=== PATIENT | female | born 1990 | race Caucasian/White ===

== ENCOUNTER 2017-01-03 15:22 | Emergency (ER) | payer OTHER ==
[2017-01-03 15:28] VITALS: TEMP 98.1
[2017-01-03] MEDS ORDERED: ORPHENADRINE 30 MG/ML 2 ML VIAL IM STA (15:53)
--- NOTE | 2017-01-03 15:53 | ED ---
Extremity Problem HPI - General Chief complaint: Extremity Problem,Nontraumatic Stated complaint: R thigh pain Time Seen by Provider: 01/03/17 15:37 Source: patient, RN notes reviewed Mode of arrival: ambulatory Limitations: no limitations - History of Present Illness Initial comments: 26-year-old female presents emergency Department chief complaint of right thigh pain. Patient states that this when she woke up and she decided is not in her right thigh. She states that she states her leg she moves her leg causes increased pain. Patient states she's never had pain like this before. Patient denies any injuries to the leg. Patient does admit to smoking she denies any hormones. Patient states she was concerned due to her continued pain and discomfort so she thought that she should be evaluated.Patient denies any recent fever, chills, shortness of breath, chest pain, back pain, abdominal pain , nausea vomiting, numbness or tingling, dysuria or hematuria, constipation or diarrhea, headaches or visual changes, or any other current symptoms. - Related Data Previous Rx's Medication Instructions Recorded Ibuprofen [Motrin] 800 mg PO Q6HR PRN #20 tab 08/04/16 Allergies Allergy/AdvReac Type Severity Reaction Status Date / Time No Known Allergies Allergy Verified 01/03/17 15:28 Review of Systems ROS Statement: Those systems with pertinent positive or pertinent negative responses have been documented in the HPI. ROS Other: All systems not noted in ROS Statement are negative. 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 History of Any Multi-Drug Resistant Organisms: MRSA Date of last positivie culture/infection: 2004 MDRO Source:: r knee Additional Past Surgical History / Comment(s): "hole in diaphram" (AT 4 YRS OLD) , ANESTHESIA FOR HEAD INJURY A CHILD Past Anesthesia/Blood Transfusion Reactions: No Reported Reaction Past Psychological History: Depression Smoking Status: Current some day smoker Past Alcohol Use History: Occasional Past Drug Use History: None Reported - Past Family History Mother Family Medical History: No Reported History General Exam - General Exam Comments Initial Comments: General: The patient is awake and alert, in no distress, and does not appear acutely ill. Neck: The neck is supple, there is no tenderness. Cardiovascular: There is a regular rate and rhythm. No murmur, rub or gallop is appreciated. Respiratory: Lungs are clear to auscultation, respirations are non-labored, breath sounds are equal. No wheezes, stridor, rales, or rhonchi. Musculoskeletal: Sensation intact with 2+ pulses throughout her right lower extremity. Full range motion of right hip and right knee and right ankle. Patient does appear to have some tenderness to palpation in the posterior right thigh. There is some tenderness to palpation. No cord or deformity noted. Neurological: CN II-XII intact, There are no obvious motor or sensory deficits. Coordination appears grossly intact. Speech is normal. Skin: Skin is warm and dry and no rashes or lesions are noted. Psychiatric: Normal mood and affect. Limitations: no limitations Course Vital Signs 01/03/17 15:26 Temperature 98.1 F Pulse Rate 85 Respiratory 20 Rate Blood Pressure 117/70 O2 Sat by Pulse 99 Oximetry Medical Decision Making - Medical Decision Making 26-year-old female presents for right thigh pain. This time x-ray and ultrasound are reviewed and acute process. Discussed the patient is most likely having a muscle strain to the right side. We did discuss heating pads. She received Norflex injection here. We discussed return parameters and follow- up states she understood all questions. She will be discharged home. - Radiology Data Radiology results: report reviewed, image reviewed Disposition Clinical Impression: Strain of right hip and thigh Disposition: HOME SELF-CARE Condition: Stable Instructions: Muscle Strain (ED) Additional Instructions: Please use medication as discussed. Please follow up with family doctor if symptoms have not improved over the next two days. Please return to the emergency room if your symptoms increase or worsen or for any other concerns. Referrals: Hudson Ortiz MD [Primary Care Provider] - 1-2 days Time of Disposition: 17:32
--- NOTE | 2017-01-03 17:23 | XR ---
EXAMINATION TYPE: XR femur RT DATE OF EXAM: 01/03/2017 4:35 PM COMPARISON: NONE HISTORY: Pain posterior right femur TECHNIQUE: 2 view right femur FINDINGS: No acute fractures are evident. Joint spaces are preserved. Couple of smooth small scleroti c areas are within tibial plateau possibly within the distal right femoral neck may represent bone is lands. Soft tissues appear normal. IMPRESSION: 1. No acute osseous abnormality.
--- NOTE | 2017-01-03 17:26 | US ---
EXAMINATION TYPE: US venous doppler duplex LE RT DATE OF EXAM: 01/03/2017 4:54 PM COMPARISON: NONE CLINICAL HISTORY: Pain. Rt posterior mid thigh pain, no prev dvt SIDE PERFORMED: right TECHNIQUE: The lower extremity deep venous system is examined utilizing real time linear array sonog joy with graded compression, doppler sonography and color-flow sonography. VESSELS IMAGED: External Iliac Vein (EIV) Common Femoral Vein Deep Femoral Vein Greater Saphenous Vein * Femoral Vein Popliteal Vein Small Saphenous Vein * Proximal Calf Veins (* superficial vessels) Right Leg: neg for RLE dvt; scanned at the posterior thigh area of concern, wnl by ultrasound IMPRESSION: 1. Normal right lower extremity deep venous ultrasound without evidence of deep venous thrombosis.
[2017-01-03 17:53] VITALS: BP 94/62; PULSE 84; RESP 16
== END 2017-01-03 17:52 | disposition home or self-care (01) ==
LOC: EC 15:22
DX: S76.011A Strain of muscle, fascia and tendon of right hip, initial encounter (principal); S76.911A Strain of unspecified muscles, fascia and tendons at thigh level, right thigh, initial encounter; F17.200 Nicotine dependence, unspecified, uncomplicated; X58.XXXA Exposure to other specified factors, initial encounter
CPT/HCPCS: 73552; 93971; 99284; 96372; J2360

== ENCOUNTER → 2017-01-12 | Outpatient (CLI) | payer OTHER ==
--- NOTE | 2017-01-12 15:17 | XR ---
EXAMINATION TYPE: XR chest 2V DATE OF EXAM: 01/12/2017 3:13 PM COMPARISON: 12/05/2015 TECHNIQUE: PA and lateral views submitted. HISTORY: Cough FINDINGS: The lungs are clear and there is no pneumothorax, pleural effusion, or focal pneumonia. Mild hyperi nflation. IMPRESSION: 1. No acute process.
== END | disposition home or self-care (01) ==
LOC: RADXRMAIN 14:54
PROVIDERS: ATTEND Internal Medicine
DX: R06.02 Shortness of breath (principal); R05 Cough
CPT/HCPCS: 71020

== ENCOUNTER 2017-02-24 17:31 | Emergency (ER) | payer OTHER ==
--- NOTE | 2017-02-24 17:54 | ED ---
General Adult HPI - General Chief complaint: Abdominal Pain Stated complaint: abd pain Time Seen by Provider: 02/24/17 17:40 Source: patient, RN notes reviewed, old records reviewed Mode of arrival: ambulatory Limitations: no limitations - History of Present Illness Initial comments: This is a 27-year-old female the ER for abdominal pain. Patient is a , denies chance of at this time. Complains of nausea no vomiting no bowel or bladder issues. No diarrhea, no dysuria, no vaginal discharge or vaginal bleeding. Patient did recently had sexual course with no pain. Patient states she does have evidence of suprapubic pain, midline, with nausea - Related Data Home Medications Medication Instructions Recorded Confirmed No Known Home Medications [No 02/24/17 02/24/17 Known Home Medications] Allergies Allergy/AdvReac Type Severity Reaction Status Date / Time No Known Allergies Allergy Verified 02/24/17 18:07 Review of Systems ROS Statement: Those systems with pertinent positive or pertinent negative responses have been documented in the HPI. ROS Other: All systems not noted in ROS Statement are negative. 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 History of Any Multi-Drug Resistant Organisms: MRSA Date of last positivie culture/infection: 2004 MDRO Source:: r knee Additional Past Surgical History / Comment(s): "hole in diaphram" (AT 4 YRS OLD) , ANESTHESIA FOR HEAD INJURY A CHILD Past Anesthesia/Blood Transfusion Reactions: No Reported Reaction Past Psychological History: Depression Smoking Status: Current some day smoker Past Alcohol Use History: Occasional Past Drug Use History: None Reported - Past Family History Mother Family Medical History: No Reported History General Exam Limitations: no limitations General appearance: alert, in no apparent distress Head exam: Present: atraumatic, normocephalic, normal inspection Eye exam: Present: normal appearance, PERRL, EOMI. Absent: scleral icterus, conjunctival injection, periorbital swelling ENT exam: Present: normal exam, mucous membranes moist Neck exam: Present: normal inspection. Absent: tenderness, meningismus, lymphadenopathy Respiratory exam: Present: normal lung sounds bilaterally. Absent: respiratory distress, wheezes, rales, rhonchi, stridor Cardiovascular Exam: Present: regular rate, normal rhythm, normal heart sounds. Absent: systolic murmur, diastolic murmur, rubs, gallop, clicks GI/Abdominal exam: Present: soft, normal bowel sounds. Absent: distended, tenderness (Nontender suprapubic pelvic pain, nausea with palpation), guarding, rebound, rigid Extremities exam: Present: normal inspection, full ROM, normal capillary refill. Absent: tenderness, pedal edema, joint swelling, calf tenderness Back exam: Present: normal inspection Neurological exam: Present: alert, oriented X3, CN II-XII intact Psychiatric exam: Present: normal affect, normal mood Skin exam: Present: warm, dry, intact, normal color. Absent: rash Course Vital Signs 02/24/17 17:35 Temperature 98.0 F Pulse Rate 99 Respiratory 20 Rate Blood Pressure 129/71 O2 Sat by Pulse 100 Oximetry - Reevaluation(s) Reevaluation #1: 02/24/17 19:13 Patient is in no acute distress Medical Decision Making - Medical Decision Making 27 female here with ovarian cysts, abdominal pain, nausea, symptoms are improved nausea at this time, patient will take Motrin, for pain and discharged home - Lab Data Lab Results 02/24/17 02/24/17 Range/Units 18:15 18:15 Urine Color Yellow Urine Appearance Clear (Clear) Urine pH 8.0 (5.0-8.0) Ur Specific [place] 1.018 (1.001-1.035) Urine Protein Trace H (Negative) Urine Glucose (UA) Negative (Negative) Urine Ketones Negative (Negative) Urine Blood Negative (Negative) Urine Nitrite Negative (Negative) Urine Bilirubin Negative (Negative) Urine Urobilinogen <2.0 (<2.0) mg/dL Ur Leukocyte Esterase Negative (Negative) Urine HCG, Qual Not Detected (Not Detectd) - Radiology Data Radiology results: report reviewed (Ultrasound pelvic pelvis shows positive ovarian cyst, no ovarian torsion), image reviewed Disposition Clinical Impression: Chronic abdominal pain, Nausea & vomiting, Ovarian cyst Disposition: HOME SELF-CARE Condition: Good Instructions: Abdominal Pain (ED), Ovarian Cyst (ED) Referrals: Hudson Ortiz MD [Primary Care Provider] - 1-2 days
[2017-02-24] MEDS ORDERED: ONDANSETRON ODT 4 MG TAB PO STA (17:57)
[2017-02-24 18:30] LABS: Appearance,Urine Clear (Clear); Bilirubin,Urine Negative (Negative); Glucose,Urine (UA) Negative (Negative); Ketones,Urine Negative (Negative); Leukocyte Esterase,Urine Negative (Negative); Nitrite,Urine Negative (Negative); Protein,Urine Trace (Negative); Specific Gravity,Urine 1.018 (1.001-1.035); UA Billing (MACRO vs. MICRO) CHEM; Urobilinogen,Urine <2.0 mg/dL (<2.0)
--- NOTE | 2017-02-24 19:25 | US ---
EXAMINATION TYPE: US transvaginal DATE OF EXAM: 02/24/2017 COMPARISON: Prior in PACS CLINICAL HISTORY: Pain. TECHNIQUE: Transvaginal (TV) Date of LMP: 01/23/2017 EXAM MEASUREMENTS: Uterus: 9.0 x 4.7 x 5.7 cm Endometrial Stripe: 1.1 cm Right Ovary: 3.0 x 1.4 x 1.7 cm Left Ovary: 3.7 x 1.9 x 2.5 cm 1. Uterus: Anteverted wnl 2. Endometrium: wnl 3. Right Ovary: wnl 4. Left Ovary: Anechoic area with a hyperechoic rim visualized measuring 1.2 cm, possible resolving cyst vs other etiology Spectral, color and waveform doppler imaging shows good arterial and venous flow within the ovaries ; there is no evidence for ovarian torsion. 5. Bilateral Adnexa: wnl 6. Posterior cul-de-sac: wnl IMPRESSION: Probable involuting cyst left ovary.
[2017-02-24 19:28] VITALS: BP 104/62; PULSE 78; RESP 18; TEMP 99
== END 2017-02-24 19:40 | disposition home or self-care (01) ==
LOC: EC 17:31
DX: N83.202 Unspecified ovarian cyst, left side (principal); R10.2 Pelvic and perineal pain; R11.0 Nausea; F17.200 Nicotine dependence, unspecified, uncomplicated
CPT/HCPCS: 76830; 81003; 81025; 87491; 87591; 93975; 99284

== ENCOUNTER 2017-03-28 18:28 | Emergency (ER) | payer OTHER ==
[2017-03-28 18:42] VITALS: RESP 18
--- NOTE | 2017-03-28 19:14 | ED ---
Abdominal Pain HPI <Denny Mendoza - Last Filed: 03/28/17 22:24> - General Source: patient, RN notes reviewed Mode of arrival: ambulatory Limitations: no limitations <Kellie rGeen - Last Filed: 03/29/17 00:51> - General Chief Complaint: Abdominal Pain Stated Complaint: abd pain Time Seen by Provider: 03/28/17 18:52 - History of Present Illness Initial Comments: Patient is a 27-year-old female presents to emergency for evaluation of lower pelvic pain. Patient has been having lower abdominal pain for the past month. Patient states she's had about 3 weeks ago for the same issue. Patient states they took her urine did an ultrasound did not find anything concerning. Patient states she has not been able follow-up with [employer] P[employer]ER yet. Patient states that while getting out of the pool today she felt a popping like sensation in her lower abdomen followed by vaginal bleeding. Patient states he was only a tiny amount of bright red blood. Patient states that the pain actually did improve after the popping sensation. Patient states seen after she took a test was positive. Patient is . Patient denies abdominal surgeries. Patient states she has been on and off nauseous over the past month. Patient denies fevers or chills. Patient has chest pain or shortness of breath. Patient has been a burning during urination, trouble urinating or blood in urine. (Kellie Green) - Related Data Home Medications Medication Instructions Recorded Confirmed No Known Home Medications [No 02/24/17 03/28/17 Known Home Medications] Allergies Allergy/AdvReac Type Severity Reaction Status Date / Time No Known Allergies Allergy Verified 03/28/17 18:58 Review of Systems ROS Other: All systems not noted in ROS Statement are negative. <Denny Mendoza - Last Filed: 03/28/17 22:24> ROS Other: All systems not noted in ROS Statement are negative. <Kellie Green - Last Filed: 03/29/17 00:51> ROS Statement: Those systems with pertinent positive or pertinent negative responses have been documented in the HPI. 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 History of Any Multi-Drug Resistant Organisms: MRSA Date of last positivie culture/infection: 2004 MDRO Source:: r knee Additional Past Surgical History / Comment(s): "hole in diaphram" (AT 4 YRS OLD) , ANESTHESIA FOR HEAD INJURY A CHILD Past Anesthesia/Blood Transfusion Reactions: No Reported Reaction Past Psychological History: Depression Smoking Status: Current every day smoker Past Alcohol Use History: Occasional Past Drug Use History: None Reported - Past Family History Mother Family Medical History: No Reported History <Kellie Green - Last Filed: 03/29/17 00:51> General Exam <Denny Mendoza - Last Filed: 03/28/17 22:24> Limitations: no limitations General appearance: alert, in no apparent distress Head exam: Present: atraumatic, normocephalic, normal inspection Eye exam: Present: normal appearance ENT exam: Present: normal exam Neck exam: Present: normal inspection Respiratory exam: Present: normal lung sounds bilaterally. Absent: respiratory distress Cardiovascular Exam: Present: regular rate, normal rhythm, normal heart sounds GI/Abdominal exam: Present: soft, tenderness (LLQ), normal bowel sounds. Absent : distended, guarding, rebound, rigid External exam: Present: normal external exam Speculum exam: Present: vaginal discharge. Absent: vaginal bleeding By manual exam: Present: normal by manual exam Extremities exam: Present: normal inspection Back exam: Present: normal inspection Neurological exam: Present: alert, oriented X3, CN II-XII intact, normal gait Psychiatric exam: Present: normal affect, normal mood Skin exam: Present: warm, dry, intact, normal color. Absent: rash <Kellie Green - Last Filed: 03/29/17 00:51> - General Exam Comments Initial Comments: Sitting in exam room, no acute distress. (Kellie Green) Medical Decision Making - Lab Data Result diagrams: 03/28/17 21:11 03/28/17 21:11 <Denny Mendoza - Last Filed: 03/28/17 22:24> - Lab Data Result diagrams: 03/28/17 21:11 03/28/17 21:11 <Kellie Green - Last Filed: 03/29/17 00:51> - Medical Decision Making I saw this patient in conjunction with the physician language assistant. I performed independent history and physical exam. Agree with case management. This patient is a 27-year-old woman with early and no identifiable . The differential diagnosis includes threatened miscarriage versus ectopic . The case is discussed with Dr. Iyer, who is the on-call bender helper, and will follow with the patient for serial hCG and ultrasound. Discussed appropriate follow-up and further care with patient. Discussed return parameters. (Denny Mendoza) - Lab Data Lab Results 03/28/17 03/28/17 03/28/17 Range/Units 19:48 19:48 19:48 WBC (3.8-10.6) k/uL RBC (3.80-5.40) m/uL Hgb (11.4-16.0) gm/dL Hct (34.0-46.0) % MCV (80.0-100.0) fL MCH (25.0-35.0) pg MCHC (31.0-37.0) g/dL RDW (11.5-15.5) % Plt Count (150-450) k/uL Neutrophils % % Lymphocytes % % Monocytes % % Eosinophils % % Basophils % % Neutrophils # (1.3-7.7) k/uL Lymphocytes # (1.0-4.8) k/uL Monocytes # (0-1.0) k/uL Eosinophils # (0-0.7) k/uL Basophils # (0-0.2) k/uL Sodium (137-145) mmol/L Potassium (3.5-5.1) mmol/L Chloride (98-107) mmol/L Carbon Dioxide (22-30) mmol/L Anion Gap mmol/L BUN (7-17) mg/dL Creatinine (0.52-1.04) mg/dL Est GFR (MDRD) Af Amer (>60 ml/min/1.73 sqM) Est GFR (MDRD) Non-Af (>60 ml/min/1.73 sqM) Glucose (74-99) mg/dL Calcium (8.4-10.2) mg/dL Total Bilirubin (0.2-1.3) mg/dL AST (14-36) U/L ALT (9-52) U/L Alkaline Phosphatase (38-126) U/L Total Protein (6.3-8.2) g/dL Albumin (3.5-5.0) g/dL HCG, Quant mIU/mL Urine Color Yellow Urine Appearance Clear (Clear) Urine pH 6.0 (5.0-8.0) Ur Specific [place] 1.022 (1.001-1.035) Urine Protein Negative (Negative) Urine Glucose (UA) Negative (Negative) Urine Ketones Negative (Negative) Urine Blood Negative (Negative) Urine Nitrite Negative (Negative) Urine Bilirubin Negative (Negative) Urine Urobilinogen <2.0 (<2.0) mg/dL Ur Leukocyte Esterase Trace H (Negative) Urine WBC 1 (0-5) /hpf Ur Squamous Epith Cells 3 (0-4) /hpf Urine Bacteria Occasional H (None) /hpf Urine Mucus Rare H (None) /hpf Urine HCG, Qual Detected (Not Detectd) Trichomonas Ag (Rapid) Negative (Negative) Blood Type Blood Type Recheck 03/28/17 03/28/17 03/28/17 Range/Units 21:11 21:11 21:11 WBC 8.8 (3.8-10.6) k/uL RBC 4.00 (3.80-5.40) m/uL Hgb 12.3 (11.4-16.0) gm/dL Hct 36.0 (34.0-46.0) % MCV 90.1 (80.0-100.0) fL MCH 30.8 (25.0-35.0) pg MCHC 34.1 (31.0-37.0) g/dL RDW 13.4 (11.5-15.5) % Plt Count 208 (150-450) k/uL Neutrophils % 69 % Lymphocytes % 22 % Monocytes % 6 % Eosinophils % 1 % Basophils % 1 % Neutrophils # 6.1 (1.3-7.7) k/uL Lymphocytes # 2.0 (1.0-4.8) k/uL Monocytes # 0.5 (0-1.0) k/uL Eosinophils # 0.1 (0-0.7) k/uL Basophils # 0.1 (0-0.2) k/uL Sodium 142 (137-145) mmol/L Potassium 3.9 (3.5-5.1) mmol/L Chloride 107 (98-107) mmol/L Carbon Dioxide 24 (22-30) mmol/L Anion Gap 11 mmol/L BUN 17 (7-17) mg/dL Creatinine 0.84 (0.52-1.04) mg/dL Est GFR (MDRD) Af Amer >60 (>60 ml/min/1.73 sqM) Est GFR (MDRD) Non-Af >60 (>60 ml/min/1.73 sqM) Glucose 84 (74-99) mg/dL Calcium 9.6 (8.4-10.2) mg/dL Total Bilirubin 0.2 (0.2-1.3) mg/dL AST 14 (14-36) U/L ALT 36 (9-52) U/L Alkaline Phosphatase 42 (38-126) U/L Total Protein 7.2 (6.3-8.2) g/dL Albumin 4.6 (3.5-5.0) g/dL HCG, Quant 406.3 mIU/mL Urine Color Urine Appearance (Clear) Urine pH (5.0-8.0) Ur Specific [place] (1.001-1.035) Urine Protein (Negative) Urine Glucose (UA) (Negative) Urine Ketones (Negative) Urine Blood (Negative) Urine Nitrite (Negative) Urine Bilirubin (Negative) Urine Urobilinogen (<2.0) mg/dL Ur Leukocyte Esterase (Negative) Urine WBC (0-5) /hpf Ur Squamous Epith Cells (0-4) /hpf Urine Bacteria (None) /hpf Urine Mucus (None) /hpf Urine HCG, Qual (Not Detectd) Trichomonas Ag (Rapid) (Negative) Blood Type A Positive Blood Type Recheck No Disposition <Denny Mendoza - Last Filed: 03/28/17 22:24> <Kellie Green - Last Filed: 03/29/17 00:51> Clinical Impression: Threatened in first trimester Narrative: Possible ectopic (Denny Mendoza) Disposition: HOME SELF-CARE Condition: Good Instructions: Ectopic (ED), Threatened Miscarriage (ED) Additional Instructions: The hCG level today was 406. As we discussed, follow-up with the bender helper. You will need to have repeat hCG level testing and possibly repeat ultrasound as well. Should any of the symptoms that we discussed develop return immediately. Referrals: Hudson Ortiz MD [Primary Care Provider] - 1-2 days Thaddeus Iyer MD [STAFF PHYSICIAN] - 1-2 days
--- NOTE | 2017-03-28 20:06 | US ---
EXAMINATION TYPE: US transvaginal DATE OF EXAM: 03/28/2017 COMPARISON: NONE CLINICAL HISTORY: Pain. Left pelvic pain, spotting TECHNIQUE: Transvaginal (TV) Date of LMP: january EXAM MEASUREMENTS: Uterus: 11.0 x 5.0 x 7.9 cm Endometrial Stripe: 1.3 cm Right Ovary: 3.5 x 2.4 x 2.7 cm Left Ovary: 3.1 x 1.9 x 1.5 cm 1. Uterus: Anteverted heterogeneous 2. Endometrium: wnl for menstrual stage 3. Right Ovary: complex area = 2.2 x 2.3 x 2.6cm there is surrounding increased color flow. This cou ld relate to a corpus luteal cyst. An ectopic could possibly have this appearance. 4. Left Ovary: appears wnl Spectral, color and waveform doppler imaging shows good arterial and venous flow within the ovaries ; there is no evidence for ovarian torsion. 5. Bilateral Adnexa: wnl 6. Posterior cul-de-sac: wnl IMPRESSION: Likely physiologic changes are noted in both ovaries. If the patient has a positive beta hCG an ectopic is not fully excluded.
[2017-03-28 20:09] LABS: Appearance,Urine Clear (Clear); Bacteria,Urine Occasional /hpf; Bilirubin,Urine Negative (Negative); Glucose,Urine (UA) Negative (Negative); Ketones,Urine Negative (Negative); Leukocyte Esterase,Urine Trace (Negative); Mucus,Urine Rare /hpf; Nitrite,Urine Negative (Negative); Particle Count 3592; Protein,Urine Negative (Negative); Specific Gravity,Urine 1.022 (1.001-1.035); Squamous Epithelial Cell,Urine 3 /hpf (0-4); UA Billing (MACRO vs. MICRO) MICRO; Urobilinogen,Urine <2.0 mg/dL (<2.0); WBC,Urine 1 /hpf (0-5)
[2017-03-28 21:19] LABS: Basophils # (A) 0.1 k/uL (0-0.2); Basophils % (A) 1 %; CH 31.4; Eosinophils # (A) 0.1 k/uL (0-0.7); Eosinophils % (A) 1 %; HDW 2.72; HGB 12.3 gm/dL (11.4-16.0); Luc # (Auto) 0.11; Luc % (Auto) 1; Lymphocytes % (A) 22 %; MCH 30.8 pg (25.0-35.0); MCHC 34.1 g/dL (31.0-37.0); MCV 90.1 fL (80.0-100.0); Mean Platelet Volume 8.8; Monocytes # (A) 0.5 k/uL (0-1.0); Monocytes % (A) 6 %; Neutrophils # (A) 6.1 k/uL (1.3-7.7); Neutrophils % (A) 69 %; RDW 13.4 % (11.5-15.5); WBC 8.8 k/uL (3.8-10.6); WBC (Perox) 9.02
[2017-03-28 21:28] LABS: ALT 36 U/L (9-52); AST 14 U/L (14-36); Alkaline Phosphatase 42 U/L (38-126); Anion Gap 11 mmol/L; Blood Urea Nitrogen 17 mg/dL (7-17); Calcium 9.6 mg/dL (8.4-10.2); Carbon Dioxide 24 mmol/L (22-30); Chloride 107 mmol/L (98-107); Glucose 84 mg/dL (74-99); Non-African American GFR(MDRD) >60 (>60 ml/min/1.73 sqM); Potassium 3.9 mmol/L (3.5-5.1); Sodium 142 mmol/L (137-145); Total Bilirubin 0.2 mg/dL (0.2-1.3); Total Protein 7.2 g/dL (6.3-8.2)
[2017-03-28 21:44] LABS: HCG,Quantitative Serum 406.3 mIU/mL
[2017-03-28 22:43] VITALS: BP 131/82; PULSE 97; TEMP 98.6
== END 2017-03-28 22:45 | disposition home or self-care (01) ==
LOC: EC 18:28
DX: O20.0 Threatened abortion (principal); O99.89 Other specified diseases and conditions complicating pregnancy, childbirth and the puerperium; R11.0 Nausea; O99.331 Smoking (tobacco) complicating pregnancy, first trimester; F17.200 Nicotine dependence, unspecified, uncomplicated; Z3A.00 Weeks of gestation of pregnancy not specified
CPT/HCPCS: 36415; 76830; 80053; 81001; 81025; 84702; 85025; 86900; 86901; 87070; 87205; 87491; 87591; 87808; 93975; 99284

== ENCOUNTER → 2017-03-30 | Outpatient (CLI) | payer OTHER ==
--- NOTE | 2017-03-30 13:28 | US ---
EXAMINATION TYPE: US pelvic complete DATE OF EXAM: 03/30/2017 COMPARISON: Transvaginal ultrasound 2 days ago. CLINICAL HISTORY: O00.10 ATUBAL . TECHNIQUE: Transabdominal (TA) Date of LMP: 02/28/2017 EXAM MEASUREMENTS: Uterus: 9.4 x 6.3 x 7.1 cm Endometrial Stripe: 1.8 cm Right Ovary: 4.1 x 2.2 x 2.7 cm Left Ovary: 2.3 x 0.8 x 1.9 cm 1. Uterus: Anteverted 2. Endometrium: wnl 3. Right Ovary: wnl 4. Left Ovary: wnl 5. Bilateral Adnexa: wnl 6. Posterior cul-de-sac: wnl No free fluid is seen in pelvis. Endometrium measures 18 mm which is prominent perhaps slightly thick er versus prior study. Right ovary size is stable on current study. Right ovary appearance is stable given transabdominal te chnique versus prior transvaginal evaluation. Peripheral anechoic lesion may reflect corpus luteal cy st. Smaller size left ovary is redemonstrated. No extraovarian adnexal masses are noted. Beta on 03/28/2017 was 406. Beta today was 894. IMPRESSION: Suboptimal in only transabdominal investigation was performed today. Continued prominent endometrium may be increased in thickness versus 2 days earlier with rising beta hCG raises concern f or too early to visualize intrauterine , spontaneous or ectopic are in di fferential. Continued serial beta hCG and ultrasound follow-up is advised.
== END | disposition home or self-care (01) ==
LOC: RADUSWWP 12:37
PROVIDERS: ATTEND Internal Medicine
DX: O00.10 Tubal pregnancy without intrauterine pregnancy (principal); Z3A.00 Weeks of gestation of pregnancy not specified
CPT/HCPCS: 76856

== ENCOUNTER 2017-04-16 20:54 | Emergency (ER) | payer OTHER ==
[2017-04-16 21:06] VITALS: PULSE 65; RESP 16
[2017-04-16 22:07] LABS: Appearance,Urine Clear (Clear); Basophils % (A) 0 %; Bilirubin,Urine Negative (Negative); CHCM 35.3; Eosinophils # (A) 0.1 k/uL (0-0.7); Eosinophils % (A) 1 %; Glucose,Urine (UA) Negative (Negative); HCT 30.8 % (34.0-46.0); HGB 10.4 gm/dL (11.4-16.0); Ketones,Urine Negative (Negative); Leukocyte Esterase,Urine Negative (Negative); Luc # (Auto) 0.08; Luc % (Auto) 1; Lymphocytes # (A) 1.3 k/uL (1.0-4.8); Lymphocytes % (A) 17 %; MCH 30.8 pg (25.0-35.0); MCHC 33.9 g/dL (31.0-37.0); MCV 91.1 fL (80.0-100.0); Mean Platelet Volume 9.2; Monocytes # (A) 0.4 k/uL (0-1.0); Monocytes % (A) 6 %; Neutrophils # (A) 5.5 k/uL (1.3-7.7); Neutrophils % (A) 74 %; Nitrite,Urine Negative (Negative); PH, Urine 5.5 (5.0-8.0); Protein,Urine Trace (Negative); RBC 3.38 m/uL (3.80-5.40); RDW 13.1 % (11.5-15.5); Specific Gravity,Urine 1.028 (1.001-1.035); UA Billing (MACRO vs. MICRO) CHEM; Urobilinogen,Urine <2.0 mg/dL (<2.0); WBC 7.4 k/uL (3.8-10.6)
--- NOTE | 2017-04-16 22:27 | ED ---
Abdominal Pain HPI - General Chief Complaint: Abdominal Pain Stated Complaint: 8 weeks /Cramping/Vomiting Time Seen by Provider: 04/16/17 21:21 Source: patient, RN notes reviewed Mode of arrival: ambulatory Limitations: no limitations - History of Present Illness Initial Comments: 26-year-old female presents emergency Department chief complaint abdominal pain . Patient states that she is presently weeks . Patient states that she has had ON the past which showed a gestational sac but no definite IUP. Patient states that her SITE HEAD is Dr. Smith. Patient is A0. Patient states that she's had some ongoing nausea vomiting of but not worse than usual states that she has kept food down today. Patient was advised to take Amparo by her SITE HEAD but states that this makes her feel worse. Patient has a fever or chills no dysuria no hematuria. Denies any vaginal bleeding or vaginal discharge. - Related Data Home Medications Medication Instructions Recorded Confirmed No Known Home Medications [No 02/24/17 04/16/17 Known Home Medications] Allergies Allergy/AdvReac Type Severity Reaction Status Date / Time No Known Allergies Allergy Verified 04/16/17 21:07 Review of Systems ROS Statement: Those systems with pertinent positive or pertinent negative responses have been documented in the HPI. ROS Other: All systems not noted in ROS Statement are negative. 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 History of Any Multi-Drug Resistant Organisms: MRSA Date of last positivie culture/infection: 2004 MDRO Source:: r knee Additional Past Surgical History / Comment(s): "hole in diaphram" (AT 4 YRS OLD) , ANESTHESIA FOR HEAD INJURY A CHILD Past Anesthesia/Blood Transfusion Reactions: No Reported Reaction Past Psychological History: Depression Smoking Status: Former smoker Past Alcohol Use History: None Reported Past Drug Use History: None Reported - Past Family History Mother Family Medical History: No Reported History General Exam Limitations: no limitations General appearance: alert, in no apparent distress Respiratory exam: Present: normal lung sounds bilaterally. Absent: respiratory distress, wheezes, rales, rhonchi, stridor Cardiovascular Exam: Present: regular rate, normal rhythm, normal heart sounds. Absent: systolic murmur, diastolic murmur, rubs, gallop, clicks GI/Abdominal exam: Present: soft, normal bowel sounds. Absent: distended, tenderness, guarding, rebound, rigid Back exam: Absent: CVA tenderness (R), CVA tenderness (L) Skin exam: Present: warm, dry, intact, normal color. Absent: rash Course Vital Signs 04/16/17 21:02 Temperature 98.3 F Pulse Rate 65 Respiratory 16 Rate Blood Pressure 113/77 O2 Sat by Pulse 100 Oximetry Medical Decision Making - Medical Decision Making 27-year-old female presented for abdominal pain . Patient ultrasound shows single viable IUP 7 weeks 0 days. Patient has subchorionic hematoma she has no active bleeding at this time. Patient will follow with SITE HEAD return parameters were discussed. - Lab Data Result diagrams: 04/16/17 21:50 Lab Results 04/16/17 04/16/17 Range/Units 21:50 21:50 WBC 7.4 (3.8-10.6) k/uL RBC 3.38 L (3.80-5.40) m/uL Hgb 10.4 L (11.4-16.0) gm/dL Hct 30.8 L (34.0-46.0) % MCV 91.1 (80.0-100.0) fL MCH 30.8 (25.0-35.0) pg MCHC 33.9 (31.0-37.0) g/dL RDW 13.1 (11.5-15.5) % Plt Count 183 (150-450) k/uL Neutrophils % 74 % Lymphocytes % 17 % Monocytes % 6 % Eosinophils % 1 % Basophils % 0 % Neutrophils # 5.5 (1.3-7.7) k/uL Lymphocytes # 1.3 (1.0-4.8) k/uL Monocytes # 0.4 (0-1.0) k/uL Eosinophils # 0.1 (0-0.7) k/uL Basophils # 0.0 (0-0.2) k/uL Urine Color Yellow Urine Appearance Clear (Clear) Urine pH 5.5 (5.0-8.0) Ur Specific [place] 1.028 (1.001-1.035) Urine Protein Trace H (Negative) Urine Glucose (UA) Negative (Negative) Urine Ketones Negative (Negative) Urine Blood Negative (Negative) Urine Nitrite Negative (Negative) Urine Bilirubin Negative (Negative) Urine Urobilinogen <2.0 (<2.0) mg/dL Ur Leukocyte Esterase Negative (Negative) Disposition Clinical Impression: Abdominal pain during , Subchorionic hematoma, Cyst of ovary Disposition: HOME SELF-CARE Condition: Stable Instructions: Abdominal Pain in (ED) Additional Instructions: Please return to the Emergency Department if symptoms worsen or any other concerns. Referrals: Hudson Ortiz MD [Primary Care Provider] - 1-2 days Time of Disposition: 23:03
--- NOTE | 2017-04-16 22:49 | US ---
EXAM: US First Trimester, Transabdominal CLINICAL HISTORY: Reason: Pain TECHNIQUE: Real-time transabdominal obstetrical ultrasound of the maternal pelvis and a first trimester with image documentation. COMPARISON: No relevant prior studies available. FINDINGS: Gestation: Intrauterine measuring 7 weeks 0 days with heart rate of 128 bpm. 2.1 cm hypoechoic collection along the rightward aspect of the gestational sac, most consistent with a subchorionic hematoma. This involves approximately 30% sac circumference. Placenta/amniotic fluid: Cannot be adequately evaluated due to the early gestational age. Uterus/cervix: No clear myometrial mass. Ovaries: 1.4 cm right ovarian cyst may reflect a corpus luteum. IMPRESSION: Live IUP measuring 7 weeks 0 days. 2.1 cm subchorionic hematoma.
[2017-04-16 23:13] VITALS: BP 117/59; TEMP 98.6
== END 2017-04-16 23:10 | disposition home or self-care (01) ==
LOC: EC 20:54
DX: O20.8 Other hemorrhage in early pregnancy (principal); O34.81 Maternal care for other abnormalities of pelvic organs, first trimester; N83.201 Unspecified ovarian cyst, right side; Z86.14 Personal history of Methicillin resistant Staphylococcus aureus infection; Z87.891 Personal history of nicotine dependence; Z3A.01 Less than 8 weeks gestation of pregnancy
CPT/HCPCS: 36415; 76801; 81003; 84702; 85025; 99284

== ENCOUNTER 2017-08-11 18:55 | Outpatient (CLI) | payer OTHER ==
[2017-08-11 20:19] VITALS: BP 147/74; PULSE 89; RESP 16; TEMP 96.9
--- NOTE | 2017-10-12 06:43 | P.MSEPDOC ---
Presenting Problems - Arrival Data Date of Arrival on Unit: 08/11/17 Time of Arrival on Unit: 18:55 Mode of Transport: Ambulatory Medical History - Information : 4 Para: 3 Term: 3 : 0 Abortions: Spontaneous or Elective: 0 Number of Living Children: 3 - Gestational Age Gestational Age by JAK (wks/days): 24 Weeks and 2 Days Vital Signs - Temperature Temperature: 96.9 F Temperature Source: Tympanic - Pulse Right Brachial Pulse Rate: 89 Pulse Assessment Method: Automatic Cuff - Respirations Respiratory Rate: 16 Oxygen Delivery Method: Room Air O2 Sat by Pulse Oximetry: 100 - Blood Pressure Right Arm Blood Pressure: 147/74 Blood Pressure Mean: 98 Blood Pressure Source: Automatic Cuff Medical Screen Scoring (Post) - Cervical Exam Dilation: Exam Deferred Effacement: Exam Deferred - Uterine Contractions Frequency: N/A Duration: N/A Intensity: N/A - Maternal Vital Signs Maternal Temperature: N/A Maternal Blood Pressure: Systolic >139 = 2 Signs of Preeclampsia: N/A Maternal Respirations: N/A - Maternal Trauma Maternal Trauma: N/A - Assessment Heart Rate: 145 Heart Rate - NICHD Category: Category I (Normal) = 0 NST: Reactive - Total Score Total Score (Post): 2 - Post Treatment Level of Risk Post Treatment Level of Risk: Low (0-5) Physician Notification (Post) - Physician Notified Physician Notified Date: 08/11/17 Physician Notified Time: 19:47 Spoke With: Evaristo Hdz Order Received: Yes - Notification Comment Comment: D/c home, pt to follow up with Dr. Roberts Disposition - Disposition OB Disposition: Discharge to home Discharge Date: 08/11/17 Discharge Time: 19:50 I agree with the RN Medical Screening Exam: No Risk & Benefit of care provided described in d/c instruction: No Diagnosis: RELATED CONDITIONS, UNSPECIFIED, SECOND TRIMESTER ( Insufficient information is provided to me to complete this form.)
== END 2017-08-11 19:50 | disposition home or self-care (01) ==
LOC: FBPOP 18:55
PROVIDERS: ATTEND Obstetrics & Gynecology
DX: O26.892 Other specified pregnancy related conditions, second trimester (principal); Z3A.24 24 weeks gestation of pregnancy
CPT/HCPCS: 99213

== ENCOUNTER 2017-11-01 17:09 | Emergency (ER) | payer OTHER ==
[2017-11-01 17:41] VITALS: BP 128/61; PULSE 104; RESP 16; TEMP 99.7
--- NOTE | 2017-11-01 17:47 | ED ---
ENT HPI - General Chief complaint: ENT Stated complaint: POSS STREP THROAT, 35 WEEKS Time Seen by Provider: 11/01/17 17:41 Source: patient, RN notes reviewed Mode of arrival: ambulatory Limitations: no limitations - History of Present Illness Initial comments: 27-year-old female presents emergency Department chief complaint sore throat. Patient states has been present since with fever. Patient states her kids been treated for strep pharyngitis. Patient states that she's been taken Tylenol with minimal relief her symptoms. Patient denies any known known drug ALLERGIES. Patient states she is currently . Patient has no compilations her at this time denies any abdominal pain no vaginal bleeding. Patient states she feels the baby moving. - Related Data Previous Rx's Medication Instructions Recorded Amoxicillin 500 mg PO Q8H #30 capsule 11/01/17 Allergies Allergy/AdvReac Type Severity Reaction Status Date / Time No Known Allergies Allergy Verified 09/21/17 17:11 Review of Systems ROS Statement: Those systems with pertinent positive or pertinent negative responses have been documented in the HPI. ROS Other: All systems not noted in ROS Statement are negative. 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 History of Any Multi-Drug Resistant Organisms: MRSA Date of last positivie culture/infection: 2004 MDRO Source:: r knee Additional Past Surgical History / Comment(s): "hole in diaphram" (AT 4 YRS OLD) , ANESTHESIA FOR HEAD INJURY A CHILD Past Anesthesia/Blood Transfusion Reactions: No Reported Reaction Past Psychological History: Depression Smoking Status: Never smoker Past Alcohol Use History: None Reported Past Drug Use History: None Reported - Past Family History Mother Family Medical History: No Reported History General Exam Limitations: no limitations General appearance: alert, in no apparent distress Head exam: Present: atraumatic, normocephalic, normal inspection Eye exam: Present: normal appearance, PERRL, EOMI. Absent: scleral icterus, conjunctival injection, periorbital swelling ENT exam: Present: mucous membranes moist, TM's normal bilaterally, normal external ear exam. Absent: normal exam, normal oropharynx (Posterior pharynx erythematous patient swallowing secretions well) Neck exam: Present: normal inspection, full ROM, lymphadenopathy. Absent: tenderness, meningismus Respiratory exam: Present: normal lung sounds bilaterally. Absent: respiratory distress, wheezes, rales, rhonchi, stridor Cardiovascular Exam: Present: normal rhythm, tachycardia, normal heart sounds. Absent: systolic murmur, diastolic murmur, rubs, gallop, clicks Course Vital Signs 11/01/17 17:37 Temperature 99.7 F H Pulse Rate 104 H Respiratory 16 Rate Blood Pressure 128/61 O2 Sat by Pulse 96 Oximetry Medical Decision Making - Medical Decision Making 27-year-old female presented emergency from for sore throat. Patient was treated for strep pharyngitis with amoxicillin. Patient continue Tylenol, salt water gargles. 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 Disposition Clinical Impression: Streptococcal sore throat Disposition: HOME SELF-CARE Condition: Stable Instructions: Strep Throat (ED) Additional Instructions: Please return to the Emergency Department if symptoms worsen or any other concerns. Prescriptions: Amoxicillin 500 mg PO Q8H #30 capsule Referrals: Hudson Ortiz MD [Primary Care Provider] - 1-2 days Time of Disposition: 17:47
== END 2017-11-01 18:09 | disposition home or self-care (01) ==
LOC: EC 17:09
DX: O99.513 Diseases of the respiratory system complicating pregnancy, third trimester (principal); J02.0 Streptococcal pharyngitis; O99.89 Other specified diseases and conditions complicating pregnancy, childbirth and the puerperium; R00.0 Tachycardia, unspecified; Z86.14 Personal history of Methicillin resistant Staphylococcus aureus infection; Z3A.35 35 weeks gestation of pregnancy
CPT/HCPCS: 99283

== ENCOUNTER 2018-04-07 21:50 | Emergency (ER) | payer OTHER ==
[2018-04-07 21:54] VITALS: BP 134/88; PULSE 86; RESP 18; TEMP 98.6
[2018-04-07] MEDS ORDERED: CEPHALEXIN 500 MG CAP PO STA (22:26)
--- NOTE | 2018-04-07 22:29 | ED ---
Skin/Abscess/FB HPI - General Chief complaint: Skin/Abscess/Foreign Body Stated complaint: SPIDER BITE Time Seen by Provider: 04/07/18 22:04 Source: patient Mode of arrival: ambulatory Limitations: no limitations - History of Present Illness Initial comments: This is a 28-year-old female with no past medical history presents today for chief complaint of spider bite to right cheek. Patient states that Thursday evening she was sitting on her couch when she felt something crawling in her face, she felt a bite when she went to swat was on her face she realized it was a spider. She states she had no type of spider was and she had killed it. Patient noticed an area of raised redness to bite [place] to the [facility]. She states that she cannot feel any foreign body in the raised area. Patient noticed some surrounding erythema that seemed to be increasing over the past 4 days, and has become warm to touch. Patient was worried about infection or reaction to spider bite that she presented to the emergency department tonight. Upon presentation patient's vital signs stable, afebrile. Patient denies any purulent drainage from the area or palpable fluctuance .Patient denies any recent fever, chills, shortness of breath, chest pain, back pain, abdominal pain , nausea or vomiting, numbness or tingling, dysuria or hematuria, constipation or diarrhea, headaches or visual changes, or any other complaints. - Related Data Home Medications Medication Instructions Recorded Confirmed Acetaminophen Tab [Tylenol Tab] 650 mg PO Q6H PRN 04/07/18 04/07/18 Biotin 10 mg PO DAILY 04/07/18 04/07/18 Previous Rx's Medication Instructions Recorded Cephalexin [Keflex] 500 mg PO Q8HR 7 Days #21 cap 04/07/18 Ibuprofen [Motrin] 800 mg PO Q8H PRN 7 Days #21 tab 04/07/18 Allergies Allergy/AdvReac Type Severity Reaction Status Date / Time No Known Allergies Allergy Verified 04/07/18 22:04 Review of Systems ROS Statement: Those systems with pertinent positive or pertinent negative responses have been documented in the HPI. ROS Other: All systems not noted in ROS Statement are negative. Constitutional: Denies: fever, chills, night sweats Eyes: Denies: eye pain, vision change ENT: Denies: throat pain Respiratory: Denies: cough, dyspnea Cardiovascular: Denies: chest pain, palpitations, dyspnea on exertion, orthopnea Endocrine: Denies: fatigue Gastrointestinal: Denies: abdominal pain, nausea, vomiting Genitourinary: Denies: urgency, dysuria Musculoskeletal: Denies: back pain Skin: Denies: rash, lesions Neurological: Denies: numbness, paresthesias, confusion Past Medical History Past Medical History: No Reported History Additional Past Medical History / Comment(s): . History of Any Multi-Drug Resistant Organisms: MRSA Date of last positivie culture/infection: 2004 MDRO Source:: r knee Additional Past Surgical History / Comment(s): "hole in diaphram" (AT 4 YRS OLD) , ANESTHESIA FOR HEAD INJURY A CHILD Past Anesthesia/Blood Transfusion Reactions: No Reported Reaction Past Psychological History: Depression Smoking Status: Current every day smoker Past Alcohol Use History: Occasional Past Drug Use History: None Reported - Past Family History Mother Family Medical History: No Reported History General Exam - General Exam Comments Initial Comments: General: The patient is awake and alert, in no distress, and does not appear acutely ill. Eye: Pupils are equal, round and reactive to light, extra-ocular movements are intact. No nystagmus. There is normal conjunctiva bilaterally. No signs of icterus. Ears, nose, mouth and throat: There are moist mucous membranes and no oral lesions. Neck: The neck is supple, there is no tenderness or JVD. Cardiovascular: There is a regular rate and rhythm. No murmur, rub or gallop is appreciated. Respiratory: Lungs are clear to auscultation, respirations are non-labored, breath sounds are equal. No wheezes, stridor, rales, or rhonchi. Neurological: A&O x 3. CN II-XII intact, There are no obvious motor or sensory deficits. Coordination appears grossly intact. Speech is normal. Skin: Skin is warm and dry and no rashes. Raised erythematous about half centimeter circumferentially papule located on the right cheek, there are 2 breaks in the skin located in the center of the erythematous papule. No signs of active drainage or bleeding. No palpable fluctuance, mild induration. Surrounding erythema, but is blanchable. Area warm to touch. Psychiatric: Cooperative, appropriate mood & affect, normal judgment. Limitations: no limitations Course Vital Signs 04/07/18 21:52 Temperature 98.6 F Pulse Rate 86 Respiratory 18 Rate Blood Pressure 134/88 O2 Sat by Pulse 100 Oximetry Medical Decision Making - Medical Decision Making Given physical examination findings at this time I feel patient has an early cellulitis. No signs or symptoms of systemic spread, patient afebrile. No area of fluctuance for I&D, no palpable abscess at this time. Case is discussed in detail Dr. Hines. At this time we feel patient is stable for discharge with prescription for Keflex 500 TID x 7 days and PCP follow up in one to days. Patient denies , stating she has been on Depo since the of her daughter in October and did not want a urine hcg prior to be putting on an antibiotic, pt wanted to be discharged. Patient was instructed on signs symptoms of worsening infection and told to return to emergency department if these arise. Patient agreed plan and is discharged in stable condition. Disposition Clinical Impression: Insect bite, Cellulitis, face Disposition: HOME SELF-CARE Condition: Good Instructions: Cellulitis (ED) Additional Instructions: Please use medication as discussed. Please follow-up with family doctor in the next 2 days of symptoms have not improved. Please return to emergency room if the symptoms increase or worsen or for any other concerns. Prescriptions: Cephalexin [Keflex] 500 mg PO Q8HR 7 Days #21 cap Ibuprofen [Motrin] 800 mg PO Q8H PRN 7 Days #21 tab PRN Reason: Pain Is patient prescribed a controlled substance at d/c from ED?: No Referrals: Hudson Ortiz MD [Primary Care Provider] - 1-2 days Time of Disposition: 22:29
== END 2018-04-07 22:35 | disposition home or self-care (01) ==
LOC: EC 21:50
DX: S00.86XA Insect bite (nonvenomous) of other part of head, initial encounter (principal); L03.211 Cellulitis of face; F17.200 Nicotine dependence, unspecified, uncomplicated; Z86.14 Personal history of Methicillin resistant Staphylococcus aureus infection; Z79.899 Other long term (current) drug therapy; W57.XXXA Bitten or stung by nonvenomous insect and other nonvenomous arthropods, initial encounter
CPT/HCPCS: 99282

== ENCOUNTER 2018-04-28 11:03 | Emergency (ER) | payer OTHER ==
[2018-04-28 11:15] VITALS: BP 116/73; PULSE 86; RESP 18; TEMP 98.2
[2018-04-28] MEDS ORDERED: ONDANSETRON 4 MG ODT STARTER PACK 2 TAB BTL PO STA (12:03)
--- NOTE | 2018-04-28 12:03 | ED ---
General Adult HPI - General Chief complaint: Abdominal Pain Stated complaint: Abd Pain Time Seen by Provider: 04/28/18 11:46 Source: patient, RN notes reviewed Mode of arrival: ambulatory Limitations: no limitations - History of Present Illness Initial comments: Patient is a 28-year-old female presented to the emergency room today with a chief complaint of nausea vomiting and diarrhea times one day. Patient states that she woke up this morning with the symptoms. She states her 7-year-old son had similar symptoms yesterday but is doing well today. Patient does admit to cramping pain coming and going in the abdomen patient states she was at work earlier today and they brought her here to Hospital be evaluated. Patient states otherwise she would've gone home. Patient denies any signs of blood in the emesis or stool. Denies any other complaints or symptoms. Patient denies any recent fever, chills, shortness of breath, chest pain, back pain, numbness or tingling, dysuria or hematuria, constipation, headaches or visual changes, or any other complaints. - Related Data Home Medications Medication Instructions Recorded Confirmed Acetaminophen Tab [Tylenol Tab] 650 mg PO Q6H PRN 04/07/18 04/07/18 Biotin 10 mg PO DAILY 04/07/18 04/07/18 Previous Rx's Medication Instructions Recorded Cephalexin [Keflex] 500 mg PO Q8HR 7 Days #21 cap 04/07/18 Ibuprofen [Motrin] 800 mg PO Q8H PRN 7 Days #21 tab 04/07/18 Ondansetron Odt [Zofran ODT] 4 mg PO Q8HR PRN #20 tab 04/28/18 Allergies Allergy/AdvReac Type Severity Reaction Status Date / Time No Known Allergies Allergy Verified 04/28/18 11:15 Review of Systems ROS Statement: Those systems with pertinent positive or pertinent negative responses have been documented in the HPI. ROS Other: All systems not noted in ROS Statement are negative. Past Medical History Past Medical History: No Reported History Additional Past Medical History / Comment(s): . History of Any Multi-Drug Resistant Organisms: MRSA Date of last positivie culture/infection: 2004 MDRO Source:: r knee Additional Past Surgical History / Comment(s): "hole in diaphram" (AT 4 YRS OLD) , ANESTHESIA FOR HEAD INJURY A CHILD Past Anesthesia/Blood Transfusion Reactions: No Reported Reaction Past Psychological History: Depression Smoking Status: Current every day smoker Past Alcohol Use History: Occasional Past Drug Use History: None Reported - Past Family History Mother Family Medical History: No Reported History General Exam - General Exam Comments Initial Comments: General: The patient is awake and alert, in no distress, and does not appear acutely ill. Eye: extra-ocular movements are intact. No nystagmus. There is normal conjunctiva bilaterally. No signs of icterus. Ears, nose, mouth and throat: There are moist mucous membranes and no oral lesions. Neck: The neck is supple, there is no tenderness or JVD. Cardiovascular: There is a regular rate and rhythm. No murmur, rub or gallop is appreciated. Respiratory: Lungs are clear to auscultation, respirations are non-labored, breath sounds are equal. No wheezes, stridor, rales, or rhonchi. Gastrointestinal: Soft, non-distended, non-tender abdomen without masses or organomegaly noted. There is no rebound or guarding present. No CVA tenderness. Musculoskeletal: Normal ROM, no tenderness. Sensation intact. Neurological: A&O x 3. CN II-XII intact, There are no obvious motor or sensory deficits. Coordination appears grossly intact. Speech is normal. Skin: Skin is warm and dry and no rashes or lesions are noted. Psychiatric: Cooperative, appropriate mood & affect, normal judgment. Limitations: no limitations Course Vital Signs 04/28/18 11:12 Temperature 98.2 F Pulse Rate 86 Respiratory 18 Rate Blood Pressure 116/73 O2 Sat by Pulse 100 Oximetry Medical Decision Making - Medical Decision Making 28-year-old female presents for nausea vomiting diarrhea that started this morning. Patient states that she would've gone home the emergency room but her work made her. Patient is resting computer. Vitals are stable. Options were discussed with patient about IV fluids and blood work. She has declined. She is agreeable to try oral nausea medication. Patient will be discharged with Zofran. Advised on appropriate x-rays return if symptoms increase worsen. Disposition Clinical Impression: Nausea vomiting and diarrhea Disposition: HOME SELF-CARE Condition: Good Instructions: Gastroenteritis (ED) Additional Instructions: Please use medication as discussed. Please follow-up with family doctor in the next 2 days of symptoms have not improved. Please return to emergency room if the symptoms increase or worsen or for any other concerns. Prescriptions: Ondansetron Odt [Zofran ODT] 4 mg PO Q8HR PRN #20 tab PRN Reason: Nausea Is patient prescribed a controlled substance at d/c from ED?: No Referrals: Hudson Ortiz MD [Primary Care Provider] - 1-2 days Time of Disposition: 12:03
== END 2018-04-28 12:10 | disposition home or self-care (01) ==
LOC: EC 11:03
DX: R11.2 Nausea with vomiting, unspecified (principal); R19.7 Diarrhea, unspecified; R10.9 Unspecified abdominal pain; F17.200 Nicotine dependence, unspecified, uncomplicated
CPT/HCPCS: 99284

== ENCOUNTER → 2019-07-04 | Outpatient (CLI) | payer OTHER ==
[2019-07-04 15:12] LABS: Basophils % (A) 0 %; Eosinophils # (A) 0.1 k/uL (0-0.7); Eosinophils % (A) 2 %; HCT 41.5 % (34.0-46.0); HGB 14.2 gm/dL (11.4-16.0); Lymphocytes # (A) 1.5 k/uL (1.0-4.8); Lymphocytes % (A) 24 %; MCH 31.3 pg (25.0-35.0); MCHC 34.2 g/dL (31.0-37.0); MCV 91.6 fL (80.0-100.0); Mean Platelet Volume 7.8; Monocytes # (A) 0.4 k/uL (0-1.0); Monocytes % (A) 6 %; Neutrophils # (A) 4.1 k/uL (1.3-7.7); Neutrophils % (A) 66 %; Platelet Count 220 k/uL (150-450); RBC 4.53 m/uL (3.80-5.40); WBC 6.2 k/uL (3.8-10.6)
== END | disposition home or self-care (01) ==
LOC: LABPAT 14:20
PROVIDERS: ATTEND Obstetrics & Gynecology
DX: Z01.812 Encounter for preprocedural laboratory examination (principal)
CPT/HCPCS: 36415; 85025

== ENCOUNTER 2019-07-08 06:14 | Day surgery (SDC) | payer OTHER ==
[2019-07-06 13:47] VITALS: BMI 22.6
--- NOTE | 2019-07-07 09:01 | P.HPOB ---
History of Present Illness H&P Date: 07/07/19 Chief Complaint: Family planning Patient is a 29-year-old who has completed her family planning and desires permanent sterilization. She is scheduled for a laparoscopic tubal occlusion with Filshie clips. Risks/benefits/alternatives to this procedure were discussed with the patient in detail and all questions were answered for her prior to proceeding to the operating room. These risks did include but were not limited to bleeding and infection/damage to bladder/bowel/nurse/vessel/ureters. Failure rate was also reviewed with the patient anywhere from 2-4 per thousand Past Medical History Past Medical History: No Reported History Additional Past Medical History / Comment(s): . History of Any Multi-Drug Resistant Organisms: MRSA Date of last positivie culture/infection: 2004 MDRO Source:: r knee Additional Past Surgical History / Comment(s): "hole in diaphram" (AT 4 YRS OLD), ANESTHESIA FOR HEAD INJURY A CHILD Past Anesthesia/Blood Transfusion Reactions: No Reported Reaction Smoking Status: Current every day smoker - Past Family History Mother Family Medical History: No Reported History Medications and Allergies Home Medications Medication Instructions Recorded Confirmed Type Medroxyprogesterone Acetate 150 mg IM DIRECTED 07/06/19 07/06/19 History [Depo-Provera] Allergies Allergy/AdvReac Type Severity Reaction Status Date / Time No Known Allergies Allergy Verified 07/06/19 13:38 Exam Osteopathic Statement: *. No significant issues noted on an osteopathic structural exam other than those noted in the History and Physical/Consult. - OBG Physical Exam Breast: both: normal (no masses) Abdomen: bowel sounds normal, no diffuse tenderness, no bruit present, no guarding noted, no hepatomegaly, no splenomegaly, no mass Vulva: both: normal Vagina: normal moisture, no discharge Cervix: no lesion, no discharge Uterus: normal size, normal contour Adnexa: both: normal Anus/Rectum: normal perianal skin, no rectal mass, no hemorrhoids, heme negative
[~2019-07-08 06:14] MED LIST: DEXAMETHASONE SOD PHOSPHATE 10 MG/ML 1 ML VIAL IV ONE; MIDAZOLAM 2 MG/2 ML VIAL IV PRN; ONDANSETRON 4 MG/2 ML VIAL IVP ONE; Pre Op ABX Message 1 EACH MISC MISCELLANE ONE; SCOPOLAMINE 1.5MG/72HR PATCH TRANSDERM ONE
[2019-07-08] MEDS: LACTATED RINGERS 1,000 ML IV SCH ×2 (06:46→09:51)
[2019-07-08] MEDS ORDERED: MIDAZOLAM 2 MG/2 ML VIAL ONE (07:25)
[2019-07-08] MEDS ORDERED: GLYCOPYRROLATE 0.2 MG/ML 2 ML VIAL ONE (07:25)
[2019-07-08] MEDS ORDERED: HYDROmorphone (PF) 1 MG/ML ONE (07:25)
[2019-07-08] MEDS ORDERED: ROCURONIUM BROMIDE 10 MG/ML 10 ML VIAL IV ONE (07:25)
[2019-07-08] MEDS ORDERED: NEOSTIGMINE 1 MG/ML 10 ML VIAL ONE (07:25)
[2019-07-08] MEDS ORDERED: LIDOCAINE 1% INJ 10MG/ML (20 ML MDV) ONE (07:25)
[2019-07-08] MEDS ORDERED: KETOROLAC 30 MG/ML 1 ML VIAL ONE (07:25)
[2019-07-08] MEDS ORDERED: PROPOFOL 10 MG/ML 20 ML VIAL IV ONE (07:25)
[2019-07-08] MEDS ORDERED: fentaNYL (PF) 50 MCG/ML 2 ML AMP ONE (07:25)
[2019-07-08] MEDS ORDERED: BUPIVACAINE (PF) 0.25% 30 ML VIAL SQ ONE (07:55)
--- NOTE | 2019-07-08 08:03 | P.OP ---
Date of Procedure: 07/08/19 Preoperative Diagnosis: Family planning Postoperative Diagnosis: Same Procedure(s) Performed: Left scopic tubal occlusion with Filshie clips Anesthesia: CHELSEA Surgeon: Mingo Sahu Estimated Blood Loss (ml): 3 Urine output (ml): 20 Pathology: none sent Condition: stable Disposition: same day Operative Findings: Some filmy scarring is noted the posterior cul-de-sac bowel does not appear occluded and seems to move freely Description of Procedure: Patient was taken to the operating suite where a general anesthetic was found be adequate. She was prepped and draped in the normal sterile fashion and placed in the dorsal lithotomy position. Initially a speculum was inserted into the vagina and the anterior lip of the cervix was identified and grasped with an Allis clamp. Uterus was then sounded to 8 cm and a uterine manipulator was then inserted without difficulty. These attachments were then removed and a red rubber catheter was used to drain the bladder of urine. Once this was accomplished gloves were changed and attention was turned to the abdominal portion of the procedure where 2 mL of quarter percent Marcaine was injected periumbilically. Through this injected anesthetic a 5 mm skin incision was made. Through this incision under direct visualization with an optical trocar and sleeve the camera was inserted. Once peritoneal placement was assured gas was left fully insufflate the abdomen and patient was placed in steep Trendelenburg position. Observations the pelvis were noted. Anteriorly there were no issues fallopian tubes appeared normal ovaries. Normal Filshie clip was applied initially first the right fallopian tube 2 cm from uterine cornu on the left fallopian tube 2 cm from uterine cornu. No bleeding is noted in the mesosalpinx. With the uterus elevated there was filmy adhesions noted to the bowel and posterior cul-de-sac region on the right side more than the left they were filmy but did not easily separate therefore the left in situ as she has had no symptoms symptoms or complaints in this region. All instruments were then removed and gas was allowed to expel from the abdomen. 5 deep breaths were provided during this process. Once this was completed 4-0 Vicryl was used to close incision subcuticularly and the remaining 8 mL of quarter percent Marcaine was injected around the incisions. Incidents were then removed from the vagina. Sponge, lap, needle counts were all correct 2. Patient was then taken to the recovery room in stable and satisfactory condition. Plan - Discharge Summary Discharge Rx Participant: No New Discharge Prescriptions: No Action Medroxyprogesterone Acetate [Depo-Provera] 150 mg IM DIRECTED Discharge Medication List Medroxyprogesterone Acetate [Depo-Provera] 150 mg IM DIRECTED 07/06/19 [History] Patient Instructions/Handouts: *[facility] - Scopalamine Patch Instructions
[2019-07-08 08:24] VITALS: TEMP 97.4
[2019-07-08] MEDS ORDERED: diphenhydrAMINE 50 MG/ML 1 ML VIAL IVP ONE (08:30)
[2019-07-08] MEDS: HYDROmorphone 0.5 MG/0.5 ML SYRINGE IVP PRN ×4 (08:39→09:43)
[2019-07-08] MEDS ORDERED: ACETAMINOPHEN IV (For NPO) 1,000 MG/100 ML VIAL IVPB ONE (08:45)
[2019-07-08 10:09] VITALS: RESP 18
[2019-07-08] MEDS ORDERED: HYDROcodone/APAP 5-325MG 1 EACH TAB PO ONE (10:30)
[2019-07-08 10:41] VITALS: BP 101/63; PULSE 70
== END 2019-07-08 11:11 | disposition home or self-care (01) ==
LOC: OR 06:14
PROVIDERS: ATTEND Obstetrics & Gynecology
DX: Z30.2 Encounter for sterilization (principal); N73.6 Female pelvic peritoneal adhesions (postinfective); D28.0 Benign neoplasm of vulva; F32.9 Major depressive disorder, single episode, unspecified; F17.210 Nicotine dependence, cigarettes, uncomplicated; Z79.3 Long term (current) use of hormonal contraceptives; Z86.14 Personal history of Methicillin resistant Staphylococcus aureus infection; Z87.738 Personal history of other specified (corrected) congenital malformations of digestive system; Z87.09 Personal history of other diseases of the respiratory system; Z87.75 Personal history of (corrected) congenital malformations of respiratory system; Z87.820 Personal history of traumatic brain injury
CPT/HCPCS: 81025; 58615; J2250; J1200; J1100; J2710; J2405; J2001; J3010; J1885; J1170 ×2; J0131; J2704

== ENCOUNTER 2019-10-01 12:27 | Emergency (ER) | payer OTHER ==
[2019-10-01 12:47] VITALS: RESP 18
--- NOTE | 2019-10-01 13:19 | XR ---
EXAMINATION TYPE: XR chest 2V DATE OF EXAM ORDERED: 10/01/2019 HISTORY: cough. REFERENCE: Previous study dated 01/12/2017. FINDINGS: The lungs are clear. Pleural spaces are clear. Heart size is normal. IMPRESSION: NORMAL CHEST.
[2019-10-01] MEDS ORDERED: ACETAMINOPHEN TAB 500 MG TAB PO STA (13:56)
--- NOTE | 2019-10-01 13:58 | ED ---
URI HPI - General Chief Complaint: Upper Respiratory Infection Stated Complaint: Chest heaviness/neck pain Time Seen by Provider: 10/01/19 13:00 Source: patient, RN notes reviewed, old records reviewed Mode of arrival: ambulatory Limitations: no limitations - History of Present Illness Initial Comments: Patient is a 29 female presents with cough congestion sore throat and chest tightness. Patient's daughter has recently been diagnosed with strep. Symptoms started 5 days ago. No recent Motrin Tylenol. She states she's had a dry cough. She states that she has general body aches. - Related Data Home Medications Medication Instructions Recorded Confirmed Medroxyprogesterone Acetate 150 mg IM DIRECTED 07/06/19 07/08/19 [Depo-Provera] Previous Rx's Medication Instructions Recorded HYDROcodone/APAP 5-325MG [[place] 1 tab PO Q4HR PRN #30 tab 07/08/19 5-325] Ibuprofen [Motrin] 600 mg PO Q6HR PRN #30 tab 07/08/19 Ibuprofen [Motrin] 400 mg PO Q6HR PRN #12 tab 10/01/19 guaiFENesin-DM 100-10MG/5ML 10 ml PO QID #120 ml 10/01/19 [Robitussin DM] methylPREDNISolone Dose Pack 4 mg PO DIRECTED #21 package 10/01/19 [Medrol Dose Pack] Allergies Allergy/AdvReac Type Severity Reaction Status Date / Time No Known Allergies Allergy Verified 07/08/19 06:34 Review of Systems ROS Statement: Those systems with pertinent positive or pertinent negative responses have been documented in the HPI. ROS Other: All systems not noted in ROS Statement are negative. Past Medical History Past Medical History: No Reported History Additional Past Medical History / Comment(s): . History of Any Multi-Drug Resistant Organisms: MRSA Date of last positivie culture/infection: 2004 MDRO Source:: r knee Past Surgical History: Tubal Ligation Additional Past Surgical History / Comment(s): "hole in diaphram" (AT 4 YRS OLD), ANESTHESIA FOR HEAD INJURY A CHILD Past Anesthesia/Blood Transfusion Reactions: No Reported Reaction Past Psychological History: Depression Smoking Status: Current every day smoker - Past Family History Mother Family Medical History: No Reported History General Exam - General Exam Comments Initial Comments: 29-year-old female distress. Limitations: no limitations General appearance: alert, in no apparent distress Head exam: Present: atraumatic, normocephalic, normal inspection Eye exam: Present: normal appearance, PERRL, EOMI. Absent: scleral icterus, conjunctival injection, periorbital swelling ENT exam: Present: normal exam, mucous membranes moist Neck exam: Present: normal inspection. Absent: tenderness, meningismus, lymphadenopathy Respiratory exam: Present: normal lung sounds bilaterally. Absent: respiratory distress, wheezes, rales, rhonchi, stridor Cardiovascular Exam: Present: regular rate, normal rhythm, normal heart sounds. Absent: systolic murmur, diastolic murmur, rubs, gallop, clicks GI/Abdominal exam: Present: soft, normal bowel sounds. Absent: distended, tenderness, guarding, rebound, rigid Extremities exam: Present: normal inspection, full ROM, normal capillary refill. Absent: tenderness, pedal edema, joint swelling, calf tenderness Back exam: Present: normal inspection Neurological exam: Present: alert, oriented X3, CN II-XII intact Psychiatric exam: Present: normal affect, normal mood Skin exam: Present: warm, dry, intact, normal color. Absent: rash Course Vital Signs 10/01/19 10/01/19 10/01/19 12:42 13:00 14:14 Temperature 98.7 F 98.4 F Pulse Rate 88 74 Respiratory 18 18 Rate Blood Pressure 111/72 112/79 O2 Sat by Pulse 89 L 100 100 Oximetry Medical Decision Making - Medical Decision Making 29-year-old female with sore throat, dry cough bodyaches. Concern for possible strep. Patient's strep test negative. Influenza test is positive for flu B. Patient's chest x-rays are negative for acute process. . Signs have been stable, was given Motrin Tylenol. Discussed patient's related to influenza. She said symptoms were to want to benefit from Tamiflu. Discussed significant for work. Tylenol and rest. All questions were answered to return parameters were discussed. - Lab Data Lab Results 10/01/19 10/01/19 Range/Units 13:05 13:05 Influenza Type A RNA Not Detected (Not Detectd) Influenza Type B (PCR) Detected H (Not Detectd) Group A Strep Rapid Negative (Negative) - Radiology Data Radiology results: report reviewed Normal chest x-ray. Disposition Clinical Impression: Influenza Disposition: HOME SELF-CARE Condition: Good Instructions (If sedation given, give patient instructions): Influenza (ED) Additional Instructions: Alternating Motrin Tylenol for fever and pain. Patient take the steroid pack to help with cough and inflammation and use nausea medicine. Return to ED if any alarming signs or symptoms occur. Prescriptions: methylPREDNISolone Dose Pack [Medrol Dose Pack] 4 mg PO DIRECTED #21 package Ibuprofen [Motrin] 400 mg PO Q6HR PRN #12 tab PRN Reason: Pain guaiFENesin-DM 100-10MG/5ML [Robitussin DM] 10 ml PO QID #120 ml Is patient prescribed a controlled substance at d/c from ED?: No Referrals: Hudson Ortiz MD [Primary Care Provider] - 1-2 days Time of Disposition: 13:56
[2019-10-01 14:15] VITALS: BP 112/79; PULSE 74; TEMP 98.4
== END 2019-10-01 14:14 | disposition home or self-care (01) ==
LOC: EC 12:27
DX: J11.1 Influenza due to unidentified influenza virus with other respiratory manifestations (principal); F17.200 Nicotine dependence, unspecified, uncomplicated; Z79.3 Long term (current) use of hormonal contraceptives; Z86.14 Personal history of Methicillin resistant Staphylococcus aureus infection
CPT/HCPCS: 71046; 87081; 87430; 87502; 93005; 99284

== ENCOUNTER → 2020-03-19 | Outpatient (CLI) | payer OTHER ==
--- NOTE | 2020-03-19 15:39 | US ---
EXAMINATION TYPE: US pelvic complete DATE OF EXAM: 03/19/2020 COMPARISON: NONE CLINICAL HISTORY: R10.2 PELVIC PAIN,N93.8 DUB,N92.0 MENORRHAGIA. Heavy bleeding long menses. TECHNIQUE: Transabdominal (TA). Transabdominal sonographic images of the pelvis were acquired. EXAM MEASUREMENTS: Uterus: 9.3 x 5.4 x cm Endometrial Stripe: .4 cm Right Ovary: 2.5 x 1.3 x 1.9 cm Left Ovary: 2.5 x 2.2 x 2.2 cm 1. Uterus: Anteverted wnl 2. Endometrium: wnl 3. Right Ovary: wnl 4. Left Ovary: wnl 5. Bilateral Adnexa: wnl 6. Posterior cul-de-sac: wnl IMPRESSION: Patient refused endovaginal scanning. No significant abnormalities evident.
[2020-03-20 02:09] LABS: Follicle Stimulating Hormone 7.2 mIU/mL; Prolactin 15.3 ng/mL (2.8-29.2)
== END | disposition home or self-care (01) ==
LOC: RADUSWWP 14:27
PROVIDERS: ATTEND Obstetrics & Gynecology
DX: N93.8 Other specified abnormal uterine and vaginal bleeding (principal); N92.0 Excessive and frequent menstruation with regular cycle; R10.2 Pelvic and perineal pain; Z13.29 Encounter for screening for other suspected endocrine disorder
CPT/HCPCS: 76856; 83001; 83002; 84146; 84443

== ENCOUNTER 2021-06-19 19:32 | Emergency (ER) | payer OTHER ==
[2021-06-19 19:42] VITALS: TEMP 99.3
[2021-06-19 21:01] VITALS: RESP 18
[2021-06-19] MEDS ORDERED: SODIUM CHLORIDE 0.9% 1,000 ML IV STA (21:04)
[2021-06-19] MEDS ORDERED: PROCHLORPERAZINE INJ 10 MG/2 ML VIAL IVP STA (21:04)
[2021-06-19] MEDS ORDERED: diphenhydrAMINE 50 MG/ML 1 ML VIAL IVP STA (21:04)
[2021-06-19] MEDS ORDERED: KETOROLAC 15 MG/ML 1 ML VIAL IVP STA (21:04)
[2021-06-19] MEDS ORDERED: SODIUM CHLORIDE 0.9% 50 ML IVPB ONE (21:30)
--- NOTE | 2021-06-19 21:59 | ED ---
General Adult HPI - General Chief complaint: Upper Respiratory Infection Stated complaint: "not feeling well" Time Seen by Provider: 06/19/21 20:34 Source: patient, RN notes reviewed, old records reviewed Mode of arrival: ambulatory Limitations: no limitations - History of Present Illness Initial comments: Patient is a 31-year-old female with no significant past medical history who was not vaccinated for COVID-19 who presents emergency Department with concern for upper respiratory illness. I evaluated the patient and she was placed in a room. Patient is describing a 2 to three-day history of worsening rhinorrhea, nonproductive cough, headaches. Patient scribes a headache as a tension-like headache around her head again tight belt is approximately a 6-7 out of 10 in severity. She does have some mild photophobia and phonophobia. No known palliative or provocative factors. She denies any fevers. She does state that her son was exposed to RSV a few weeks ago. She denies any known Covid exposures. She denies any nausea, vomiting, abdominal pain, diarrhea. His no urinary complaints at this time. She is concerned for possible sinus infection, which she has had previously but states it feels somewhat worse at this time. She has no other acute complaints at this time. - Related Data Home Medications Medication Instructions Recorded Confirmed Medroxyprogesterone Acetate 150 mg IM DIRECTED 07/06/19 07/08/19 [Depo-Provera] Previous Rx's Medication Instructions Recorded HYDROcodone/APAP 5-325MG [[place] 1 tab PO Q4HR PRN #30 tab 07/08/19 5-325] Ibuprofen [Motrin] 600 mg PO Q6HR PRN #30 tab 07/08/19 Ibuprofen [Motrin] 400 mg PO Q6HR PRN #12 tab 10/01/19 guaiFENesin-DM 100-10MG/5ML 10 ml PO QID #120 ml 10/01/19 [Robitussin DM] methylPREDNISolone Dose Pack 4 mg PO DIRECTED #21 package 10/01/19 [Medrol Dose Pack] Acetaminophen Tab [Tylenol] 500 mg PO Q6H PRN 7 Days #28 tablet 06/19/21 Albuterol Inhaler [Ventolin Hfa 1 puff INHALATION RT-TID #8 gm 06/19/21 Inhaler] Allergies Allergy/AdvReac Type Severity Reaction Status Date / Time No Known Allergies Allergy Verified 06/19/21 19:42 Review of Systems ROS Statement: Those systems with pertinent positive or pertinent negative responses have been documented in the HPI. Review of Systems: CONST: Denies fever EYES: Denies blurry vision ENT: Endorses nasal congestion C/V: Denies Chest pain RESP: Denies shortness of breath GI: Denies abdominal pain : Denies dysuria SKIN: Denies rash. MSK: Denies joint pain. NEURO: Endorses headache ROS Other: All systems not noted in ROS Statement are negative. Past Medical History Past Medical History: No Reported History Additional Past Medical History / Comment(s): . History of Any Multi-Drug Resistant Organisms: MRSA Date of last positivie culture/infection: 2004 MDRO Source:: r knee Past Surgical History: Tubal Ligation Additional Past Surgical History / Comment(s): "hole in diaphram" (AT 4 YRS OLD), ANESTHESIA FOR HEAD INJURY A CHILD Past Anesthesia/Blood Transfusion Reactions: No Reported Reaction Past Psychological History: Depression Past Alcohol Use History: Occasional Past Drug Use History: None Reported - Past Family History Mother Family Medical History: No Reported History General Exam - General Exam Comments Initial Comments: General: Appears in mild distress secondary to headache HEAD: Normal with no signs of head trauma. EYES: PERRLA, EOMI, conjunctiva normal, no discharge. Pupils are 2 mm and equal bilaterally. ENT: Hearing grossly intact, normal oropharynx. Rhinorrhea present. Minimal tenderness Max lay sinuses bilaterally. RESPIRATORY: Clear breath sounds bilaterally. No wheezes, rales, or rhonchi. No respiratory distress. C/V: Regular rate and rhythm. S1 and S2 auscultated, no edema, peripheral pulses 2+ and intact throughout ABD: Abd is soft, nontender, nondistended EXT: Normal range of motion, no obvious deformity SKIN: No rashes or lesions observed on exposed skin. NEURO: Alert and oriented 4. Limitations: no limitations Course Vital Signs 06/19/21 06/19/21 19:40 20:58 Temperature 99.3 F Pulse Rate 79 Respiratory 19 18 Rate Blood Pressure 117/86 O2 Sat by Pulse 99 Oximetry Medical Decision Making - Medical Decision Making Based on the patient's presentation and physical exam, I'm concerned for possible COVID-19 infection. Covid swab was obtained in triage. It was found to be positive, but negative for flu and RSV. I did convey the results of the patient. She is not having any respiratory distress and is saturating adequately, do not believe that she requires any further workup for COVID-19 at this time. I did offer the patient monoclonal antibodies in addition to migraine cocktail which she accepted. Patient consented to the monoclonal antibodies. She'll be given IV Toradol, Compazine, Benadryl and 1 L fluid bolus. She'll be observed following antibody therapy and discharged afterwards. She was in agreement this plan. We did discuss social distancing, as well as possibly keeping her children home from school and monitoring for symptoms. Patient was observed for an hour following monoclonal antibody therapy. Should no reactions. On reevaluation, headache is improved and she feels better. I believe it is safe for her to be discharged home at this time and she was in agreement with the plan. I will provide the patient with a prescription for albuterol, Tylenol. I instructed the patient to follow up with their PCP in the next 3 days. I provided contact information for follow up with Dr. Turk of [facility]. I explained that the patient should return to the emergency department if they experience any worsening symptoms. Strict return precautions were discussed with the patient. The patient expressed understanding of these instructions. I answered all questions that the patient had. The patient was discharged home in fair condition with their prescriptions and follow up information. - Lab Data Lab Results 06/19/21 Range/Units 19:44 Influenza Type A (PCR) Not Detected (Not Detectd) Influenza Type B (PCR) Not Detected (Not Detectd) RSV (PCR) Not Detected (Not Detectd) SARS-CoV-2 (PCR) Detected A (Not Detectd) Disposition Clinical Impression: COVID-19 virus infection, Headache Disposition: HOME SELF-CARE Condition: Fair Instructions (If sedation given, give patient instructions): Coronavirus Disease 2019 (COVID-19) Prescriptions: Acetaminophen Tab [Tylenol] 500 mg PO Q6H PRN 7 Days #28 tablet PRN Reason: Pain Albuterol Inhaler [Ventolin Hfa Inhaler] 1 puff INHALATION RT-TID #8 gm Is patient prescribed a controlled substance at d/c from ED?: No Referrals: None,Stated [Primary Care Provider] - 1-2 days Martinez Turk MD [STAFF PHYSICIAN] - 1-2 days
[2021-06-19] MEDS ORDERED: CASIRIVIMAB (REGN10933) (EUA) 600 MG, IMDEVIMAB (REGN10987) (EUA) 600 MG in SODIUM CHLO... IVPB ONE (22:00)
[2021-06-19 23:38] VITALS: BP 110/71; PULSE 87
== END 2021-06-19 23:38 | disposition home or self-care (01) ==
LOC: EC 19:32
DX: U07.1 COVID-19 (principal); R51.9 Headache, unspecified; F32.9 Major depressive disorder, single episode, unspecified; Z98.51 Tubal ligation status
CPT/HCPCS: 99284 ×2; 96365; 96375 ×4; 96361 ×2; 87636; M0243; J1200; J0780; J1885; Q0243

== ENCOUNTER 2022-02-06 11:54 | Emergency (ER) | payer BC, OTHER ==
[2022-02-06 12:18] VITALS: BP 132/98; PULSE 74; RESP 18; TEMP 98.4
--- NOTE | 2022-02-06 14:04 | ED ---
General Adult HPI - General Chief complaint: Neuro Symptoms/Deficit Stated complaint: Head pressure Time Seen by Provider: 02/06/22 13:40 Source: patient, RN notes reviewed, old records reviewed Mode of arrival: ambulatory Limitations: no limitations - History of Present Illness Initial comments: 32-year-old female presenting for evaluation of pressure-like sensation at the base of her head and upper neck. Symptoms have been present for the past 2 years. She's been seen by her primary care physician and been seen by a neurologist. She states she had some outpatient testing but no brain imaging. She states that when she turns her head she sometimes feels an increase in pressure and is very dizzy. There is been no acute change in her symptoms they have just been present for approximately 2 years and patient is seeking answers. No severe headache at the time my evaluation. No focal numbness or weakness. - Related Data Home Medications Medication Instructions Recorded Confirmed Medroxyprogesterone Acetate 150 mg IM DIRECTED 07/06/19 07/08/19 [Depo-Provera] Previous Rx's Medication Instructions Recorded HYDROcodone/APAP 5-325MG [[place] 1 tab PO Q4HR PRN #30 tab 07/08/19 5-325] Ibuprofen [Motrin] 600 mg PO Q6HR PRN #30 tab 07/08/19 Ibuprofen [Motrin] 400 mg PO Q6HR PRN #12 tab 10/01/19 guaiFENesin-DM 100-10MG/5ML 10 ml PO QID #120 ml 10/01/19 [Robitussin DM] methylPREDNISolone Dose Pack 4 mg PO DIRECTED #21 package 10/01/19 [Medrol Dose Pack] Acetaminophen Tab [Tylenol] 500 mg PO Q6H PRN 7 Days #28 tablet 06/19/21 Albuterol Inhaler [Ventolin Hfa 1 puff INHALATION RT-TID #8 gm 06/19/21 Inhaler] Allergies Allergy/AdvReac Type Severity Reaction Status Date / Time No Known Allergies Allergy Verified 06/19/21 19:42 Review of Systems ROS Statement: Those systems with pertinent positive or pertinent negative responses have been documented in the HPI. ROS Other: All systems not noted in ROS Statement are negative. Past Medical History Past Medical History: No Reported History Additional Past Medical History / Comment(s): . History of Any Multi-Drug Resistant Organisms: MRSA Date of last positivie culture/infection: 2004 MDRO Source:: r knee Past Surgical History: Tubal Ligation Additional Past Surgical History / Comment(s): "hole in diaphram" (AT 4 YRS OLD), ANESTHESIA FOR HEAD INJURY A CHILD Past Anesthesia/Blood Transfusion Reactions: No Reported Reaction Past Psychological History: Depression Smoking Status: Former smoker Past Alcohol Use History: Occasional Past Drug Use History: None Reported - Past Family History Mother Family Medical History: No Reported History General Exam Limitations: no limitations General appearance: alert, in no apparent distress Head exam: Present: atraumatic, normocephalic Eye exam: Present: normal appearance, PERRL, EOMI ENT exam: Present: normal exam Neck exam: Present: normal inspection. Absent: tenderness, meningismus Respiratory exam: Present: normal lung sounds bilaterally. Absent: respiratory distress Cardiovascular Exam: Present: regular rate, normal rhythm GI/Abdominal exam: Present: soft. Absent: distended, tenderness, guarding Extremities exam: Present: normal inspection, normal capillary refill Neurological exam: Present: alert, oriented X3, CN II-XII intact, normal gait, other (Normal finger to nose bilaterally, no ataxia, negative Romberg). Absent: motor sensory deficit Psychiatric exam: Present: normal affect, normal mood Skin exam: Present: warm, dry, intact. Absent: cyanosis, diaphoretic Course Vital Signs 02/06/22 12:16 Temperature 98.4 F Pulse Rate 74 Respiratory 18 Rate Blood Pressure 132/98 O2 Sat by Pulse 98 Oximetry Medical Decision Making - Medical Decision Making 32-year-old female with occipital headache, dizziness, pressure sensation. Symptoms are chronic and relatively stable for this patient. She is well- appearing with a normal neurologic exam. I do feel this patient would benefit from imaging and off for CT imaging in the emergency department although I feel she should receive MRI. Patient prefers to follow up with her primary care physician and will request this imaging as an outpatient. Return parameters discussed. Disposition Clinical Impression: Headache Disposition: HOME SELF-CARE Condition: Good Instructions (If sedation given, give patient instructions): Acute Headache (ED), Cervical Radiculopathy (ED) Additional Instructions: Recommend follow-up with her primary care physician, possibly reevaluated by neurology and possible MRI as an outpatient. Is patient prescribed a controlled substance at d/c from ED?: No Referrals: Hudson Ortiz MD [Primary Care Provider] - 1-2 days Time of Disposition: 14:03
== END 2022-02-06 14:18 | disposition home or self-care (01) ==
LOC: EC 11:54
DX: R51.9 Headache, unspecified (principal); F32.A Depression, unspecified; Z87.891 Personal history of nicotine dependence; Z79.899 Other long term (current) drug therapy
CPT/HCPCS: 99283

== ENCOUNTER → 2022-02-28 | Outpatient (CLI) | payer BC, OTHER ==
--- NOTE | 2022-03-01 03:11 | MR ---
EXAMINATION TYPE: MR brain wo con DATE OF EXAM: 02/28/2022 COMPARISON: None HISTORY: Headache, pressure in head Multiplanar multiecho imaging of the brain with no contrast. Ventricles and sulci appear normal. There is no mass effect or midline shift. No sign of intracranial hemorrhage. Diffusion images show no evidence of an acute infarct. Brainstem is intact. Cerebellum i s intact. Corpus callosum appears normal. Sella turcica appears normal. No evidence of orbital mass. No evidenc e of cerebral edema. IMPRESSION: Normal MRI scan of the brain.
== END | disposition home or self-care (01) ==
LOC: RADMRIMAIN 17:02
PROVIDERS: ATTEND Internal Medicine
DX: R51.9 Headache, unspecified (principal); R55 Syncope and collapse
CPT/HCPCS: 70551

== ENCOUNTER → 2023-02-05 | Outpatient (CLI) | payer BC, OTHER ==
--- NOTE | 2023-02-05 17:55 | US ---
EXAMINATION TYPE: US thyroid st tissue head/neck DATE OF EXAM: 02/05/2023 COMPARISON: NONE CLINICAL INDICATION: Female, 33 years old with history of E04.1 NONTOXIC SINGLE THYROID NODULE; thyro id nodule GLAND SIZE: Right Lobe: 5.3 x 1.8 x 2.1 cm Overall Parenchyma: homogenous Left Lobe: 5.5 x 1.4 x 1.7 cm Overall Parenchyma: homogeneous Isthmus Thickness: 0.4 cm NODULES RIGHT: # of nodules measured on right: 1 1. 1.2 X 0.7 x 1.2 cm, mid lateral, solid or almost completely solid, hypoechoic TR 4 nodule, which is wider than tall, with smooth margins, with echogenic foci. Prior size: no prior LEFT: # of nodules measured on left: 0 ISTHMUS: # of nodules measured in the isthmus: 0 Bilateral neck scanned, no evidence of lymphadenopathy. IMPRESSION: Borderline thyromegaly. Solitary 1.2 cm TR4 nodule at the right midpole. Follow-up recommended. FNA i f it reaches 1.5 cm.
[2023-02-06 04:26] LABS: Thyroid Peroxidase Antibodies 11.6 U/mL (0.0-33.0)
== END | disposition home or self-care (01) ==
LOC: RADUSWWP 12:27
PROVIDERS: ATTEND Otolaryngology
DX: E04.1 Nontoxic single thyroid nodule (principal)
CPT/HCPCS: 76536; 84443; 86376; 86800

== ENCOUNTER 2023-07-13 19:24 | Emergency (ER) | payer BC, OTHER ==
[2023-07-13 19:54] VITALS: RESP 18
[2023-07-13] MEDS ORDERED: DIPH,PERTUS(ACELL)TETVAC-LF 0.5 ML VIAL IM ONE (20:03)
[2023-07-13] MEDS ORDERED: LIDOCAINE 1% INJ 10MG/ML (20 ML MDV) SQ ONE (20:03)
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
[2023-07-13 21:05] VITALS: BP 101/71; PULSE 68; TEMP 98
== END 2023-07-13 20:54 | disposition home or self-care (01) ==
LOC: EC 19:24
DX: S61.210A Laceration without foreign body of right index finger without damage to nail, initial encounter (principal); F17.290 Nicotine dependence, other tobacco product, uncomplicated; Z23 Encounter for immunization; W26.8XXA Contact with other sharp object(s), not elsewhere classified, initial encounter
CPT/HCPCS: 90715; 99282; 90471; 12001; J2001

== ENCOUNTER → 2023-09-16 | Outpatient (CLI) | payer BC, OTHER ==
[2023-09-16 15:32] LABS: Basophils # (A) 0.02 X 10*3/uL (0.00-0.10); Basophils % (A) 0.4 %; Eosinophils # (A) 0.06 X 10*3/uL (0.04-0.35); Eosinophils % (A) 1.1 %; HCT 39.7 % (37.2-46.3); HGB 13.4 g/dL (12.0-15.0); Lymphocytes # (A) 1.06 X 10*3/uL (0.90-5.00); Lymphocytes % (A) 18.8 %; MCH 31.6 pg (27.0-32.0); MCHC 33.8 g/dL (32.0-37.0); MCV 93.6 FL (80.0-97.0); Mean Platelet Volume 12.8 FL (9.5-12.2); Monocytes # (A) 0.56 X 10*3/uL (0.20-1.00); Monocytes % (A) 9.9 %; NRBC Per 100 WBC 0 X 10*3/uL (0.00-0.01); Neutrophils # (A) 3.94 X 10*3/uL (1.80-7.70); Neutrophils % (A) 69.6 %; Platelet Count 210 X 10*3/uL (140-440); RBC 4.24 X 10*6/uL (4.10-5.20); RDW 12.6 % (11.5-14.5); WBC 5.65 X 10*3/uL (4.50-10.00)
[2023-09-16 15:38] LABS: ALT 34 U/L (8-44); AST 21 U/L (13-35); Albumin 4.8 g/dL (3.8-4.9); Albumin/Globulin Ratio 2.09 Ratio (1.60-3.17); Alkaline Phosphatase 56 U/L (41-126); BUN/Creat Ratio 19.25 Ratio (12.00-20.00); Blood Urea Nitrogen 15.4 mg/dL (9.0-27.0); Calcium 9.5 mg/dL (8.7-10.3); Chloride 103 mmol/L (96-109); Chol/HDL Ratio 1.68 Ratio; Globulin 2.3 g/dL (1.6-3.3); Glucose 95 mg/dL (70-110); LDL Cholesterol,Calculated 37.3 mg/dL (0.0-131.0); Potassium 4.6 mmol/L (3.5-5.5); Sodium 141 mmol/L (135-145); T4, Free (Free Thyroxine) 1.36 ng/dL (0.80-1.80); Total Bilirubin 0.4 mg/dL (0.3-1.2); Total Protein 7.1 g/dL (6.2-8.2); VLDL Calculation 6.58 mg/dL (5.00-40.00)
== END | disposition home or self-care (01) ==
LOC: LABWHC1 09:33
PROVIDERS: ATTEND Family Medicine
DX: Z00.01 Encounter for general adult medical examination with abnormal findings (principal); Z13.220 Encounter for screening for lipoid disorders; E04.1 Nontoxic single thyroid nodule; E53.8 Deficiency of other specified B group vitamins; E55.9 Vitamin D deficiency, unspecified; M13.0 Polyarthritis, unspecified
CPT/HCPCS: 36415; 80053; 80061; 82306; 82607; 84439; 84443; 85025; 86038

== ENCOUNTER 2025-01-13 12:46 | Emergency (ER) | payer BC ==
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
--- NOTE | 2025-01-13 13:38 | XR ---
EXAMINATION TYPE: XR chest 2V DATE OF EXAM: 01/13/2025 1:34 PM COMPARISON: Chest radiographs from 10/01/2019 CLINICAL INDICATION: Female, 34 years old with history of difficulty breathing; [facility] TECHNIQUE: XR chest 2V Frontal and lateral views of the chest. FINDINGS: Lungs/Pleura: There is no evidence of pleural effusion, focal consolidation, or pneumothorax. Pulmonary vascularity: Unremarkable. Heart/mediastinum: Cardiomediastinal silhouette is unremarkable. Musculoskeletal: No acute osseous pathology. Other findings: None IMPRESSION: No acute cardiopulmonary disease/process. [facility], , 01/13/2025 1:36 PM
[2025-01-13 14:18] LABS: ALT 111 U/L (4-34); AST 56 U/L (14-36); African American GFR (CKD) >90 (>60 ml/min/1.73 sqM); Albumin 4.7 g/dL (3.5-5.0); Alkaline Phosphatase 54 U/L (38-126); Anion Gap 8 mmol/L; Blood Urea Nitrogen 16 mg/dL (7-17); Calcium 9.8 mg/dL (8.4-10.2); Carbon Dioxide 23 mmol/L (22-30); Chloride 106 mmol/L (98-107); Glucose 92 mg/dL (74-99); Magnesium 1.9 mg/dL (1.6-2.3); Non-African American GFR(CKD) >90 (>60 ml/min/1.73 sqM); Potassium 4.1 mmol/L (3.5-5.1); Sodium 137 mmol/L (137-145); Total Bilirubin 0.8 mg/dL (0.2-1.3); Total Protein 7.4 g/dL (6.3-8.2)
[2025-01-13 14:26] LABS: NT-Pro-B-Type Natriuretic Pept 33 pg/mL
[2025-01-13 14:42] LABS: Basophils # (A) 0.04 10*3/uL (0.00-0.10); Basophils % (A) 0.6 %; Eosinophils # (A) 0.11 10*3/uL (0.04-0.35); Eosinophils % (A) 1.6 %; HCT 35.4 % (37.2-46.3); HGB 12.4 g/dL (12.0-15.0); Lymphocytes # (A) 1.16 10*3/uL (0.90-5.00); Lymphocytes % (A) 17.3 %; MCH 31.9 pg (27.0-32.0); Mean Platelet Volume 12.3 fL (9.5-12.2); Monocytes # (A) 0.71 10*3/uL (0.20-1.00); Monocytes % (A) 10.6 %; Neutrophils # (A) 4.67 10*3/uL (1.80-7.70); Neutrophils % (A) 69.6 %; Platelet Count 197 10*3/uL (140-440); RBC 3.89 10*6/uL (4.10-5.20); RDW 12.6 % (11.5-14.5); WBC 6.71 10*3/uL (4.50-10.00)
[2025-01-13 15:07] LABS: Prothrombin Time 11.3 sec (10.0-12.5)
[2025-01-13 15:25] LABS: Partial Thromboplastin Time 20.3 sec (22.0-30.0)
[2025-01-13] MEDS: FUROSEMIDE 40 MG TAB PO STA (16:11)
[2025-01-13 16:34] VITALS: BP 118/72; PULSE 62; RESP 18; TEMP 97.8
== END 2025-01-13 16:33 | disposition home or self-care (01) ==
LOC: EC 12:46
DX: R60.0 Localized edema (principal); R00.1 Bradycardia, unspecified; F17.290 Nicotine dependence, other tobacco product, uncomplicated
CPT/HCPCS: 36415; 71046; 80053; 83605; 83735; 83880; 84484; 85025; 85379; 85610; 85730; 93005; 99284

== ENCOUNTER → 2025-02-08 | Outpatient (CLI) | payer BC ==
[2025-02-08 10:29] LABS: Basophils # (A) 0.03 X 10*3/uL (0.00-0.10); Basophils % (A) 0.5 %; Eosinophils # (A) 0.17 X 10*3/uL (0.04-0.35); HCT 34.3 % (37.2-46.3); HGB 11.3 g/dL (12.0-15.0); Lymphocytes # (A) 1.27 X 10*3/uL (0.90-5.00); Lymphocytes % (A) 22.6 %; MCH 30.4 pg (27.0-32.0); MCHC 32.9 g/dL (32.0-37.0); MCV 92.2 FL (80.0-97.0); Mean Platelet Volume 12.9 FL (9.5-12.2); Monocytes # (A) 0.67 X 10*3/uL (0.20-1.00); Monocytes % (A) 11.9 %; NRBC Per 100 WBC 0 X 10*3/uL (0.00-0.01); Neutrophils # (A) 3.47 X 10*3/uL (1.80-7.70); Neutrophils % (A) 61.6 %; Platelet Count 230 X 10*3/uL (140-440); RBC 3.72 X 10*6/uL (4.10-5.20); RDW 12.6 % (11.5-14.5); WBC 5.63 X 10*3/uL (4.50-10.00)
[2025-02-08 10:41] LABS: Erythrocyte Sedimentation Rate 3 mm/Hr (0-20)
[2025-02-08 11:09] LABS: % Iron Saturation 12.76 (12.00-45.00); ALT 33 U/L (8-44); AST 17 U/L (13-35); Albumin 4.5 g/dL (3.8-4.9); Albumin/Globulin Ratio 2.25 Ratio (1.60-3.17); Alkaline Phosphatase 47 U/L (41-126); BUN/Creat Ratio 21.62 Ratio (12.00-20.00); Blood Urea Nitrogen 17.3 mg/dL (9.0-27.0); C Reactive Protein <0.30 mg/dL (0.00-0.80); Calcium 9.2 mg/dL (8.7-10.3); Carbon Dioxide 25.4 mmol/L (21.6-31.8); Chloride 106 mmol/L (96-109); Chol/HDL Ratio 1.88 Ratio; Glucose 96 mg/dL (70-110); Iron 50 UG/DL (50-170); LDL Cholesterol,Calculated 43.8 mg/dL (0.0-131.0); Potassium 3.9 mmol/L (3.5-5.5); Sodium 141 mmol/L (135-145); Total Bilirubin 0.3 mg/dL (0.3-1.2); Total Iron Binding Capacity 392 UG/DL (228-460); Total Protein 6.5 g/dL (6.2-8.2)
[2025-02-08 11:10] LABS: Ferritin 12.9 ng/mL (10.0-291.0)
[2025-02-08 11:22] LABS: Hepatitis A Antibody IgM Nonreactive (Nonreactive); Hepatitis B Core IgM Nonreactive (Nonreactive); Hepatitis B Surface Antigen Nonreactive (Nonreactive); Hepatitis C IgG Antibody Nonreactive (Nonreactive)
[2025-02-08 13:50] LABS: Cyclic Citrull Pep IgG Unit <1.5 U/mL (<=3.9); Cyclic Citrullinated Pep IgG Negative
[2025-02-08 15:02] LABS: Free Kappa Lt Chain Qnt, Serum 1.18 mg/dL (0.33-1.94); Free Lambda Lt Chain Qnt, Seru 0.83 mg/dL (0.57-2.63)
== END | disposition home or self-care (01) ==
LOC: LABWHC1 07:45
PROVIDERS: ATTEND Family Medicine
DX: E55.9 Vitamin D deficiency, unspecified (principal); E53.8 Deficiency of other specified B group vitamins; E04.1 Nontoxic single thyroid nodule; K75.81 Nonalcoholic steatohepatitis (NASH); M13.0 Polyarthritis, unspecified
CPT/HCPCS: 36415; 80053; 80061; 80074; 82103; 82306; 82607; 82728; 82784; 82785; 83036; 83540; 83550; 83883; 83970; 84436; 84443; 84480; 85025; 85652; 86038; 86140; 86200; 86334; 86618